=== PATIENT | male | born 1965 | race Caucasian/White ===

== ENCOUNTER 2022-06-23 12:59 | Emergency (ER) | payer OTHER, SELFPAY ==
[2022-06-23] VITALS (7 sets, daily range): BP systolic 143–168; BP diastolic 68–104; PULSE 71–203; RESP 16–20; TEMP 36.6; O2SAT 96–99; BMI 37.3
--- NOTE | 2022-06-23 13:07 | HMH.EDGENADL ---
Discharge Plan Disposition Patient Disposition: Home, Self-Care Condition: Good Prescriptions Prescriptions: New metoprolol tartrate 50 mg tablet 50 mg PO BID Qty: 60 0RF Referrals Follow up/Referrals: Provider,Referral, [Primary Care Provider] - See instructions Activity Restrictions/Add. Instructions Additional Instructions/Restrictions: Metoprolol twice a day. Stopped this medication 5 days prior to your ablation procedure. Return to the emergency department if rapid heartbeat returns and does not resolve with vagal maneuvers. Follow-up with Dr. Alfred, call tomorrow to report to emergency department visit and arrange further care. Follow-up with your primary care provider for elevated blood sugar, 165 at the time of this visit. Clinical Impressions Clinical Impression: Supraventricular tachycardia Instructions Patient Instructions: DI for Paroxysmal Supraventricular Tachycardia Discharge ED Provider: Bart Arteaga General Adult HPI General Chief complaint: Arrhythmia/Palpitations Stated complaint: chest pain Time Seen by Provider: 06/23/22 13:01 History of Present Illness HPI narrative: 20-minute episode of tachycardia associated with shortness of breath and chest discomfort and diaphoresis. He has had episodes of tachycardia off and on for 10 years, he estimates 10-15 episodes. Most recently a couple weeks ago he was seen at the [facility] for an episode that lasted 2 hours. He says that he had to receive medication to stop his rapid heartbeat. He was referred to a inventory technician, Dr. Alfred, at [facility]. He has seen him and says he is scheduled to have an ablation done next month. He has not been started on any medications for his arrhythmia. He does not have any known coronary disease or MT. He has never had a cardiac cath. He has had a stress test in the past many years ago. Related Data Previous Rx's Medication Instructions Recorded metoprolol tartrate 50 mg tablet 50 mg PO BID #60 tabs 06/23/22 Allergies Allergy/AdvReac Type Severity Reaction Status Date / Time No Known Allergies Allergy Unverified 03/11/21 13:42 [facility] Disclaimer: The information contained in this section may have been updated after the patient was seen, as this information can be updated by other users. Social History Smoking Status: Never smoker alcohol intake: never current occupational status: employed Travel in the last 8 weeks: None ROS Obtained: Yes Systems reviewed as appropriate & no additional complaints except as documented Constitutional Constitutional: Denies fever(s), Denies headache(s) and Denies weakness ENT Ears, Nose, Mouth, and Throat: Denies headache(s), Denies nasal discharge and Denies sore throat Cardiovascular Cardiovascular: Reports chest pain, Reports diaphoresis and Reports rapid heart rate Respiratory Respiratory: Reports shortness of breath and Denies cough Gastrointestinal Gastrointestingal: Denies abdominal pain, constipation, diarrhea or vomiting Genitourinary Male Genitourinary: Denies difficulty urinating and Denies flank pain Musculoskeletal Musculoskeletal: Denies numbness Neurologic Neurologic: Denies headache(s), Denies numbness and Denies weakness Physical Exam General General appearance: alert and in no apparent distress Head Head exam: atraumatic and normocephalic Eye Eye exam: Present normal appearance and EOMI ENT ENT exam: Present mucous membranes moist Neck Neck exam: Present normal inspection and trachea midline Chest Chest inspection: Present normal inspection and symmetric chest wall rise Respiratory Respiratory exam: Present normal lung sounds bilaterally; Absent respiratory distress Cardiovascular Cardiovascular exam: Present tachycardia and normal heart sounds Abdominal Exam Abdominal exam: Present soft and normal bowel sounds; Absent distention, tenderness, guarding, rebound or rigidity Extremities Exam Extrem
--- NOTE | 2022-06-23 13:11 | ECG_ITS ---
APPROVED REPORT Exam: Resting ECG HR:76 bpm ECG Measurements Heart Rate 76 AXES NH 178 P 27 QRSd 98 QRS -28 QT 372 T 17 QTc 403 Conclusion SINUS RHYTHM LOW QRS VOLTAGE IN PRECORDIAL LEADS LVH Late R wave progression UNCONFIRMED REPORT Electronically signed by : Wade Sawyer MD 06/23/2022 15:30:25
--- NOTE | 2022-06-23 13:44 | PC.NURSE ---
checked on pt at this time, states no needs at this time. at BS will continue to monitor
--- NOTE | 2022-06-23 13:47 | PC.NURSE ---
DR VAUGHAN AT BEDSIDE
--- NOTE | 2022-06-23 13:55 | PC.NURSE ---
placed call for Dr Alfred, at [facility] medical exchange is to give Dr Staley calling back.
[2022-06-23 13:57] LABS: Blood Urea Nitrogen 13 mg/dl (9-20); Calcium 8.7 mg/dl (8.4-10.2); Carbon Dioxide 27 mmol/L (22.0-30.0); Chloride 106 mmol/L (98-107); Creatinine Clearance Estimated 139 mL/min (50-200); Estimated Glomerular Filt Rate 78 ml/min (>60); GFR (African American) 94 ML/MIN (>60); Glucose 165 mg/dl (74-100); Magnesium 1.8 mg/dl (1.6-2.3); Sodium 137 mmol/L (136-145)
--- NOTE | 2022-06-23 13:57 | PC.NURSE ---
Dr Arteaga speaking with Dr Staley
[2022-06-23 14:08] LABS: Basophils # 0.2 K/mm3 (0-0.2); Eosinophils # 0.5 K/mm3 (0.0-0.4); Eosinophils % 4.5 % (0.1-12.0); Hematocrit 50.7 % (42.0-52.0); Hemoglobin 17.1 g/dL (14.1-18.0); Lymphocytes # 2.7 K/mm3 (0.7-4.5); Lymphocytes % 26.4 % (10-50); Mean Corpuscular HGB Conc 33.7 g/dL (31.8-35.4); Mean Corpuscular Hemoglobin 29.4 pg (27.0-31.2); Mean Corpuscular Volume 87.2 fl (80-94); Mean Platelet Volume 8.6 fl (7.4-10.4); Monocytes # 0.9 K/mm3 (0.1-1.0); Monocytes % 9.2 % (1.7-9.3); Neutrophils # 5.9 K/mm3 (1.8-7.8); Platelet Count 312 K/mm3 (142-424); Red Blood Count 5.82 M/mm3 (4.60-6.20); White Blood Count 10.1 K/mm3 (4.8-10.8)
[2022-06-23 14:09] LABS: Troponin I < 0.01 ng/ml (0.00-0.034)
--- NOTE | 2022-06-23 14:30 | PC.NURSE ---
ER at discussing test results and POC
== END 2022-06-23 15:05 | disposition home or self-care (01) ==
PROVIDERS: Emergency Provider Emergency Medicine
DX: I47.1 Supraventricular tachycardia (principal)
CPT/HCPCS: 80048; 83735; 84484; 85025; 93005; 96361; 96374; 99285

== ENCOUNTER 2023-09-21 00:37 | Emergency (ER) | payer OTHER, SELFPAY ==
[2023-09-21] VITALS (9 sets, daily range): BP systolic 125–161; BP diastolic 69–95; PULSE 59–69; RESP 13–18; TEMP 36.5; O2SAT 94–98; BMI 37.3
--- NOTE | 2023-09-21 00:36 | ECG_ITS ---
APPROVED REPORT Exam: Resting ECG HR:64 bpm ECG Measurements Heart Rate 64 AXES MS 182 P 40 QRSd 97 QRS -9 QT 392 T 11 QTc 402 Conclusion SINUS RHYTHM WITH OCCASIONAL VENTRICULAR PREMATURE COMPLEXES LOW QRS VOLTAGE IN PRECORDIAL LEADS [QRS DEFLECTION < 1.0 mV IN CHEST LEADS] POSSIBLE ANTERIOR MYOCARDIAL INFARCTION , PROBABLY OLD [30 ms Q WAVE IN V3/V4, OR R < 0.2 mV IN V4] BORDERLINE ECG Electronically signed by : DENZEL LOTT, 09/21/2023 06:44:31
--- NOTE | 2023-09-21 01:02 | XR_ITS ---
PROCEDURE INFORMATION: Exam: XR Chest Exam date and time: 09/21/2023 1:03 AM Age: 58 years old Clinical indication: Pain; Chest pressure; Additional info: SOA cp TECHNIQUE: Imaging protocol: Radiologic exam of the chest. Views: 1 view. COMPARISON: No relevant prior studies available. FINDINGS: Lungs: Unremarkable. No consolidation. Pleural spaces: Unremarkable. No pleural effusion. No pneumothorax. Heart/Mediastinum: Unremarkable. No cardiomegaly. Bones/joints: Unremarkable. IMPRESSION: No acute findings.
--- NOTE | 2023-09-21 01:05 | HMH.EDCP ---
Discharge Plan Disposition Patient Disposition: Home, Self-Care Condition: Good Prescriptions Prescriptions: No Action No Known Home Medications Referrals Follow up/Referrals: Provider,MD Evon [Primary Care Provider] - See instructions Jose Tafoya MD [Staff Physician] - See instructions (palpitations, hx SVT w/ ablation) Activity Restrictions/Add. Instructions Additional Instructions/Restrictions: You were evaluated in the ER. You are appropriate for discharge at this time. You have mild kidney dysfunction today. Increase your water intake. Make an appointment with your primary care physician for reevaluation in 2 to 3 days to discuss this and to have your labs rechecked. Also call cardiology and make an appointment with them. You have been referred to Dr. Tafoya for this purpose. Return to the ER with any new, worsening, or otherwise concerning symptoms. Clinical Impressions Clinical Impression: Palpitations, Creatinine elevation Discharge ED Provider: Fahad Pereira General Chief Complaint: Chest Pain Stated Complaint: Chest pain Time Seen by Provider: 09/21/23 00:46 Mode of Arrival: Ambulatory Source of Information: Patient Limitations: No Limitations Description of Symptoms (Recalled from ER Triage Doc. by RN): pt states he drank half of an energy drink on friday after that pt c/o of heart racing and chest tightness while sitting. pt had a heart ablation in 2022 History of Present Illness HPI narrative: 58-year-old male with a history of ablation for SVT approximately 1 year ago presents to the ER with concerns of heart racing, chest tightness, shortness of breath. 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 He reports drinking approximately half of it, and started feeling like his heart was racing and he had chest tightness. He states he has had the same sensation of chest tightness without the sensation of palpitations in the last few days. He notices it more at rest. He states he is actively having that sensation in the ER. He states it feels like his breath is being taken away. He does not smoke, he denies any swelling or pain in the feet or legs, no history of blood clots, denies illicit substances or alcohol. No other associated symptoms. Related Data Home Medications Medication Instructions Recorded Confirmed No Known Home Medications 05/12/24 05/12/24 Allergies Allergy/AdvReac Type Severity Reaction Status Date / Time trees Allergy Mild Congested Uncoded 09/05/23 15:03 [facility] Disclaimer: The information contained in this section may have been updated after the patient was seen, as this information can be updated by other users. Medical History Colon cancer Surgical History H/O colectomy Family History Mother Diabetes Father Diabetes Hypertension Social History Smoking Status: Former smoker years smoked: 25 alcohol intake: never substance use type: denies use current occupational status: employed Travel in the last 8 weeks: Inside the [place] ROS Obtained: Yes All systems reviewed & no additional complaints except as documented Constitutional Constitutional: Denies chills, Denies fever(s), Denies headache(s) and Denies weakness Eyes Eyes: Denies change in vision ENT Ears, Nose, Mouth, and Throat: Denies dizziness, Denies headache(s), Denies nasal congestion and Denies sore throat Cardiovascular Cardiovascular: Reports chest pain, Reports dyspnea, Denies leg edema and Reports palpitations Respiratory Respiratory: Denies cough and Reports dyspnea Gastrointestinal Gastrointestingal: Denies constipation, diarrhea, nausea or vomiting Genitourinary Male Genitourinary: Denies difficulty urinating Musculoskeletal Musculoskeletal: Denies arthralgias, Denies myalgias, Denies numbness and Denies tingling Integumentary/Breasts Skin/Breast: Denies change in pigmentation Neurologic Neurologic: Denies dizziness, Denies headache(s), Denies numbness, Denies tingling and Denies weakness Endocrine Endocrine: Reports palpitations Physical Exam General General appearance: alert and in no apparent distress Head Head exam: atraumatic and normocephalic Eye Eye exam: Present PERRL and EOMI ENT ENT exam: Present mucous membranes moist Neck Neck exam: Present normal inspection and full ROM Chest Chest inspection: Present symmetric chest wall rise; Absent tenderness Respiratory Respiratory exam: Present normal lung sounds bilaterally; Absent respiratory distress, wheezes or stridor Cardiovascular Cardiovascular exam: Present regular rate and normal rhythm Abdominal Exam Abdominal exam: Present soft; Absent distention, tenderness, guarding or rebound Extremities Exam Extremities exam: Present full ROM; Absent edema Neurological Exam Neurological exam: Present alert and oriented X3; Absent motor sensory deficit Psychiatric Psychiatric exam: Present normal affect and normal mood Skin Skin exam: Present warm and dry HEART Score HEART Score HEART Score assessment performed?: Yes History (anamnesis): Moderately suspicious ECG: Non-specific disturbance Age: 45-65 years Risk factors: 1-2 risk factors Troponin: </= normal limit HEART Score: 4 Critical Care Critical Care Time Critical Care Time: No Medical Decision Making Clemente Inquiry Pt receiving controlled substance: No Vital Signs Vital Signs: 09/21/23 00:38 09/21/23 00:45 09/21/23 00:54 Temperature 97.7 F Temperature Source Oral Pulse Rate 66 69 Pulse Rate [Right] 69 Respiratory Rate 16 13 Blood Pressure 140/83 Blood Pressure [Right Arm] 147/86 H Blood Pressure Mean Blood Pressure Mean [Right Arm] 106 02 Sat by Pulse Oximetry 97 95 Oxygen Delivery Method Room Air 09/21/23 01:00 Temperature Temperature Source Pulse Rate 65 Pulse Rate [Right] Respiratory Rate 16 Blood Pressure 148/95 H Blood Pressure [Right Arm] Blood Pressure Mean 104 Blood Pressure Mean [Right Arm] 02 Sat by Pulse Oximetry 94 L Oxygen Delivery Method Room Air Lab Data Labs: Lab Results 09/21/23 00:49: WBC 12.7 H, RBC 5.52, Hgb 16.7, Hct 50.9, MCV 92.2, MCH 30.2, MCHC 32.8, RDW 13.9, Plt Count 224, MPV 8.3, Neut % (Auto) 65.2, Lymph % (Auto) 21.1, [place] % (Auto) 8.0, Eos % (Auto) 4.1, Baso % (Auto) 1.6, Neut # (Auto) 8.3 H, Lymph # (Auto) 2.7, [place] # (Auto) 1.0, Eos # (Auto) 0.5 H, Baso # (Auto) 0.2, D-Dimer 0.44, Sodium 137, Potassium 3.8, Chloride 105, Carbon Dioxide 26, Anion Gap 9.8, BUN 22 H, Creatinine 1.50 H, Estimated Creat Clear 92, Estimated GFR 48 L, Est GFR ( Amer) 59, Glucose 107 H, Calcium 9.2, Total Bilirubin 0.7, AST 48, ALT 54, Alkaline Phosphatase 93, Troponin I < 0.01, Total Protein 6.8, Albumin 3.9, Globulin 2.9, Albumin/Globulin Ratio 1.3 09/21/23 02:50: Sodium 138, Potassium 3.6, Chloride 104, Carbon Dioxide 28, Anion Gap 9.6, BUN 21 H, Creatinine 1.30 H, Estimated Creat Clear 106, Estimated GFR 57 L, Est GFR ( Amer) 69, Glucose 98, Calcium 8.6 09/21/23 00:49 09/21/23 02:50 Response Orders (Tests/Meds): ED MEDICATIONS Discontinued Medications Generic Name Dose Route Start Last Admin Trade Name Freq PRN Reason Stop Dose Admin Lactated Ringer's 1,000 mls @ 999 mls/hr 09/21/23 01:04 09/21/23 01:15 Lactated Ringer's 1000 Ml Bag IV 09/21/23 02:04 999 mls/hr .Q1H1M ONE Administration Lactated Ringer's 1,000 mls @ 999 mls/hr 09/21/23 01:22 09/21/23 01:29 Lactated Ringer's 1000 Ml Bag IV 09/21/23 02:22 999 mls/hr .Q1H1M ONE Administration Ketorolac Tromethamine 15 mg 09/21/23 01:04 09/21/23 01:16 Ketorolac 30mg/Ml Vial IV 09/21/23 01:05 15 mg ONCE ONE Administration ORDERS Category Date Time Status CXR --portable [XR chest portable] Stat Exams 09/21/23 01:02 Completed BMP [Basic Metabolic Panel] Stat Lab 09/21/23 02:50 Completed CBC w/Auto Diff [Complete Blood Count Auto Diff] Stat Lab 09/21/23 00:49 Completed CMP [Comprehensive Metabolic Panel] Stat Lab 09/21/23 00:49 Completed D-Dimer Stat Lab 09/21/23 00:49 Completed Trop I [Troponin I] Stat Lab 09/21/23 00:49 Completed Troponin I Q3H Lab 09/21/23 04:15 Ordered Troponin I Q3H Lab 09/21/23 07:15 Ordered MDM Narrative Medical Decision Narrative: In summary, this 58year old male presents to the emergency department today with concerns of palpitations, chest tightness, sensation of his breath being taken away intermittently while at rest. Comorbidities of current condition include history of SVT with ablation which increases his overall morbidity and risk of arrhythmias. 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 On initial evaluation patient is hemodynamically stable, afebrile, cardiopulmonary exam is reassuring, no peripheral edema, no reproducible chest pain on exam but patient states he is experiencing the same discomfort while in the ER that he has intermittently had at home over the last few days. Differential diagnosis includes but is not limited to ACS, PE, arrhythmia, caffeine sensitivity, electrolyte abnormality, dehydration. Based on these concerns, I ordered cardiac workup, chest x-ray, D-dimer, basic labs. ECG personally interpreted demonstrates normal sinus rhythm, rate 64, occasional PVCs, normal axis, normal KS, QTc 402, no STEMI. Patient received IV fluids, Toradol for treatment. Labs personally reviewed demonstrate mild leukocytosis, no anemia, sodium, potassium, chloride normal, BUN and creatinine are slightly elevated today compared to previous with creatinine of 1.5. Patient is going to receive 2 L of IV fluids and then I will repeat BMP for recheck. Initial troponin undetectably low at less than 0.01. Given duration of symptoms, this is significantly reassuring against acute cardiac event. D-dimer negative, no concern for PE, reassuring against dissection as well especially in the setting of normal mediastinum on chest x-ray, normal pulses, and no tearing pain or radiation to the back. XR personally interpreted demonstrates no acute intrathoracic abnormality. See radiology read for final interpretation. Repeat BMP demonstrates improvement in creatinine. Patient is appropriate for discharge at this time. I counseled him on following up with his primary for recheck of labs as well as to follow-up with cardiology to discuss his palpitations and abnormal sensation in the chest. Patient was given instructions on symptomatic management, increase fluid intake, follow up instructions, and return precautions for the emergency department. Patient indicated understanding and was discharged in stable condition.
[2023-09-21 01:10] LABS: Basophils # 0.2 K/mm3 (0-0.2); Basophils % 1.6 % (0.1-2.0); Eosinophils # 0.5 K/mm3 (0.0-0.4); Eosinophils % 4.1 % (0.1-12.0); Hematocrit 50.9 % (42.0-52.0); Hemoglobin 16.7 g/dL (14.1-18.0); Lymphocytes # 2.7 K/mm3 (0.7-4.5); Lymphocytes % 21.1 % (10-50); Mean Corpuscular HGB Conc 32.8 g/dL (31.8-35.4); Mean Corpuscular Hemoglobin 30.2 pg (27.0-31.2); Mean Corpuscular Volume 92.2 fl (80-94); Mean Platelet Volume 8.3 fl (7.4-10.4); Neutrophils # 8.3 K/mm3 (1.8-7.8); Neutrophils % 65.2 % (37.0-80.0); Platelet Count 224 K/mm3 (142-424); Red Blood Count 5.52 M/mm3 (4.60-6.20); Red Cell Distribution Width 13.9 % (11.5-17.5); White Blood Count 12.7 K/mm3 (4.8-10.8)
[2023-09-21 01:12] LABS: Chloride 105 mmol/L (98-107); Potassium 3.8 mmoL/L (3.5-5.1); Sodium 137 mmol/L (136-145)
[2023-09-21 01:14] LABS: Blood Urea Nitrogen 22 mg/dl (9-20); Creatinine Clearance Estimated 92 mL/min (50-200); Estimated Glomerular Filt Rate 48 ml/min (>60); GFR (African American) 59 ML/MIN (>60)
[2023-09-21 01:15] LABS: Alanine Aminotransferase 54 U/L (12-78); Albumin Level 3.9 g/dl (3.5-5.0); Albumin/Globulin Ratio 1.3 (1.1-1.8); Alkaline Phosphatase 93 U/L (38-126); Anion Gap 9.8 mEq/L (5-15); Aspartate Amino Transferase 48 U/L (17-59); Bilirubin,Total 0.7 mg/dl (0.2-1.3); Carbon Dioxide 26 mmol/L (22.0-30.0); Globulin 2.9 g/dL (1.3-3.2); Total Protein,Serum 6.8 g/dl (6.3-8.2)
[2023-09-21] MEDS: LACTATED RINGERS 1000ML 1,000 ML 999 ML IV ×2 (01:15→01:29)
[2023-09-21 01:16] LABS: Calcium 9.2 mg/dl (8.4-10.2); Glucose 107 mg/dl (74-100)
[2023-09-21] MEDS: KETOROLAC 30MG/ML VIAL 15 MG IV (01:16)
[2023-09-21 01:20] LABS: D-Dimer 0.44 ug/mL (0.0-0.5)
[2023-09-21 01:28] LABS: Troponin I < 0.01 ng/ml (0.00-0.034)
[2023-09-21 03:03] LABS: Anion Gap 9.6 mEq/L (5-15); Blood Urea Nitrogen 21 mg/dl (9-20); Calcium 8.6 mg/dl (8.4-10.2); Carbon Dioxide 28 mmol/L (22.0-30.0); Chloride 104 mmol/L (98-107); Creatinine Clearance Estimated 106 mL/min (50-200); Estimated Glomerular Filt Rate 57 ml/min (>60); GFR (African American) 69 ML/MIN (>60); Glucose 98 mg/dl (74-100); Potassium 3.6 mmoL/L (3.5-5.1); Sodium 138 mmol/L (136-145)
== END 2023-09-21 03:18 | disposition home or self-care (01) ==
PROVIDERS: Emergency Provider Emergency Medicine; PCP Nurse Practitioner Family
DX: R07.89 Other chest pain (principal); R00.2 Palpitations; I49.3 Ventricular premature depolarization; R79.89 Other specified abnormal findings of blood chemistry; R06.02 Shortness of breath; Z87.891 Personal history of nicotine dependence
CPT/HCPCS: 71045; 80048; 80053; 84484; 85025; 85378; 93005; 96361; 96374; 99284

== ENCOUNTER 2024-06-04 15:18 | Outpatient (CLI) | payer OTHER, SELFPAY ==
--- NOTE | 2024-06-04 15:20 | XR_ITS ---
FINAL REPORT TECHNIQUE: Chest PA & Lateral CLINICAL HISTORY: shortness of breath, fever, cough x 4 days COMPARISON: 09/21/2023 FINDINGS: 2 views of the chest were performed. The heart size is normal. The mediastinum is within normal limits. Atelectasis is noted at the right lung base. There are no pleural effusions. There is no pneumothorax. The bony thorax appears intact. IMPRESSION: Right lung base atelectasis. Reviewed, Interpreted and Dictated by Theo Aparicio MD Transcribed by Reny Rodriguez Authenticated and [facility]
== END 2024-06-04 23:59 | disposition home or self-care (01) ==
PROVIDERS: PCP Nurse Practitioner Family; Visit Provider Nurse Practitioner Family
DX: R06.02 Shortness of breath (principal); R50.9 Fever, unspecified; R05.1 Acute cough
CPT/HCPCS: 71046; 87635

== ENCOUNTER 2024-07-28 18:40 | Observation (INO) | payer OTHER, SELFPAY ==
[2024-07-28 18:51] VITALS: BP 157/73; PULSE 96; RESP 18; TEMP 36.5; O2SAT 96; BMI 37.3
[2024-07-28 18:57] LABS: Coronavirus 19, PCR Not Detected (NotDetected); Influenza A, PCR Not Detected (NotDetected); Influenza B, PCR Not Detected (NotDetected)
--- NOTE | 2024-07-28 19:00 | XR_ITS ---
PROCEDURE INFORMATION: Exam: XR Complete Acute Abdomen Series Including Chest Exam date and time: 07/28/2024 7:26 PM Age: 59 years old Clinical indication: Abdominal pain; Additional info: Lower abd pain starting yesterday, nausea, denies vomiting TECHNIQUE: Imaging protocol: Radiologic exam. Complete acute abdomen series, including 2 or more views of the abdomen and a single view chest. COMPARISON: CR XR CHEST 2V 06/04/2024 3:21 PM FINDINGS: Tubes, catheters and devices: Surgical clips overlie the gallbladder fossa. Lungs: Normal. No consolidation. Pleural spaces: Normal. No pleural effusions. No pneumothorax. Heart/Mediastinum: Normal. No cardiomegaly. Gastrointestinal tract: Mild bowel thickening without dilated loops or air-fluid levels. Intraperitoneal space: Normal. No free air. Bones/joints: Normal. No acute fracture. Soft tissues: Normal. IMPRESSION: Mild bowel thickening without dilated loops or air-fluid levels.
[2024-07-28 19:25] LABS: Microscopic, Urine URINE MICROSCOPIC (MICROSCOPIC)
[2024-07-28 19:26] LABS: Appearance,Urine CLEAR (Clear); Bilirubin,Urine Negative (Negative); Blood, Urine Negative (Negative); Color,Urine YELLOW (Yellow); Glucose,Urine (UA) Negative (Negative); Ketones,Urine Negative (Negative); Leukocyte Esterase,Urine Negative (Negative); Nitrate,Urine Negative (Negative); PH,Urine 6.5 (5.0-8.5); Protein,Urine Negative (Negative); Specific Gravity, Urine 1.015 (1.005-1.030); Urobilinogen,Urine 0.2 EU/dl (0.2)
--- NOTE | 2024-07-28 19:34 | PC.NURSE ---
Pt awake alert and oriented Skin pink warm and dry Resp full and easy Speech clear and appropriate Pt to Xray via wheelchair
[2024-07-28 19:49] LABS: Basophils # 0.1 K/mm3 (0-0.2); Basophils % 0.5 % (0.1-2.0); Eosinophils # 0.1 K/mm3 (0.0-0.4); Eosinophils % 0.2 % (0.1-12.0); Hemoglobin 17.3 g/dL (14.1-18.0); Lymphocytes # 2.2 K/mm3 (0.7-4.5); Lymphocytes % 10.7 % (10-50); Mean Corpuscular HGB Conc 34.6 g/dL (31.8-35.4); Mean Corpuscular Hemoglobin 29.8 pg (27.0-31.2); Mean Corpuscular Volume 86.2 fl (80-94); Mean Platelet Volume 10.2 fl (7.4-10.4); Monocytes % 9.7 % (1.7-9.3); Neutrophils % 77.7 % (37.0-80.0); Platelet Count 212 K/mm3 (142-424); Red Cell Distribution Width 13.6 % (11.5-17.5); White Blood Count 20.6 K/mm3 (4.8-10.8)
[2024-07-28 19:51] LABS: MANUAL DIFFERENTIAL MANUAL DIFFERENTIAL (MANUAL DIFF)
[2024-07-28] MEDS: 0.9 % SODIUM CHLORIDE 1000ML 1,000 ML 999 ML IV (19:52)
[2024-07-28 20:02] LABS: Lactic Acid 0.9 mmol/L (0.7-2.1); Lipase 159 U/L (23-300)
[2024-07-28 20:03] LABS: Alanine Aminotransferase 44 U/L (12-78); Albumin Level 4.3 g/dl (3.5-5.0); Albumin/Globulin Ratio 1.5 (1.1-1.8); Alkaline Phosphatase 77 U/L (38-126); Anion Gap 10.9 mEq/L (5-15); Aspartate Amino Transferase 37 U/L (17-59); Bilirubin,Total 0.8 mg/dl (0.2-1.3); Blood Urea Nitrogen 17 mg/dl (9-20); Carbon Dioxide 24 mmol/L (22.0-30.0); Chloride 101 mmol/L (98-107); Creatinine Clearance Estimated 136 mL/min (50-200); Estimated Glomerular Filt Rate 77 ml/min (>60); GFR (African American) 93 ML/MIN (>60); Globulin 2.8 g/dL (1.3-3.2); Glucose 139 mg/dl (74-100); Potassium 3.9 mmoL/L (3.5-5.1); Sodium 132 mmol/L (136-145); Total Protein,Serum 7.1 g/dl (6.3-8.2)
[2024-07-28 20:10] LABS: Eosinophils % 1 % (0-3); Lymphocytes % 7 % (10-50); Monocytes % 12 % (2-9); Neutrophils % 80 % (42-76); Total Cells Counted 100
[2024-07-28 20:11] LABS: Platelet Estimate Normal; RBC Morphology Normal
[2024-07-28] MEDS: HYDROMORPHONE 2MG/ML SYRINGE 0.5 MG IV (20:46)
[2024-07-28] MEDS: PIPERACILLIN/TAZO 4.5 GM in 0.9 % SODIUM CHLORIDE 100 ML IV (20:46)
[2024-07-28] MEDS: KETOROLAC 30MG/ML VIAL 15 MG IV ×2 (20:46→23:45)
--- NOTE | 2024-07-28 20:46 | CT_ITS ---
PROCEDURE INFORMATION: Exam: CT Abdomen And Pelvis With Contrast Exam date and time: 07/28/2024 9:10 PM Age: 59 years old Clinical indication: Abdominal pain; Other: Midline suprapubic pain; Additional info: Severe midline suprapubic pain TECHNIQUE: Imaging protocol: Computed tomography of the abdomen and pelvis with contrast. Radiation optimization: All CT scans at this facility use at least one of these dose optimization techniques: automated exposure control; mA and/or kV adjustment per patient size (includes targeted exams where dose is matched to clinical indication); or iterative reconstruction. Contrast material: ISOVUE; Contrast volume: 75 ml; Contrast route: IV; COMPARISON: CR Acute Abdomen 07/28/2024 7:26 PM FINDINGS: Lungs: Dependent bilateral lung base opacities favor atelectasis. Liver: There is diffuse hypoattenuation of the liver compatible with moderate hepatic steatosis. Gallbladder and biliary ducts: There are surgical clips within the gallbladder fossa. Pancreas: Normal. No ductal dilation. Spleen: Normal. No splenomegaly. Adrenal glands: Normal. No mass. Kidneys and ureters: Normal. No hydronephrosis. Stomach and bowel: Sigmoid colon demonstrates mild acute diverticulitis. Appendix: The appendix is not visualized with surgical changes at the cecum suggesting appendectomy. Intraperitoneal space: Unremarkable. No free air. No significant fluid collection. Vasculature: Unremarkable. No abdominal aortic aneurysm. Lymph nodes: Unremarkable. No enlarged lymph nodes. Urinary bladder: Unremarkable as visualized. Reproductive: Unremarkable as visualized. Bones/joints: Moderate loss of intervertebral disc space with degenerative changes involving L5-S1 Soft tissues: Normal. IMPRESSION: Sigmoid colon demonstrates mild acute diverticulitis. No perforation. No abscess.
[2024-07-28 20:53] LABS: Bacteria,Urine 1+ /lpf; Mucus,Urine 1+ /lpf; RBC,Urine Occasional #/hpf (0-3); Squamous Epithelial Cell,Urine Occasional #/hpf (0-5); WBC,Urine Occasional #/hpf (0-3)
--- NOTE | 2024-07-28 20:54 | ED_ITS ---
Discharge Plan Disposition Patient Disposition: Admitted Chief Complaint: Abdominal Pain Prescriptions Prescriptions: No Action Airsupra 90-80 mcg/actuation HFA aerosol inhaler 2 inh inhalation 6XD PRN (Reason: shortness of breath or wheezing) Qty: 10.7 0RF amoxicillin-pot clavulanate 875-125 mg tablet 1 tab PO BID 14 Days Qty: 28 0RF albuterol sulfate 90 mcg/actuation HFA aerosol inhaler 2 puff inhalation Q4-6H PRN (Reason: shortness of breath or wheezing) Qty: 8.5 0RF Referrals Follow up/Referrals: Erinn Del Cid APRN [Primary Care Provider] - See instructions Clinical Impressions Clinical Impression: Diverticulitis of sigmoid colon Instructions Patient Instructions: DI for Acute Abdominal Pain Print Language Print Language: Occitan Discharge ED Provider: Angelo Lugo General Adult HPI General Chief complaint: Abdominal Pain Stated complaint: lower abd pain, pain when urinating, fever Time Seen by Provider: 07/28/24 19:34 Mode of Arrival: Ambulatory Description of Symptoms (Recalled from ER Triage Doc. by RN): Pt presents with c/o lower abd pain, fever and pain with urinating. Pt states he was on amoxcillin for a partially collapsed long. History of Present Illness HPI narrative: Please note that above description of symptoms, in this electronic medical record under categorization of recalled from ER triage doctor by RN are reflective of an initial nursing assessment, however, is not reflective of my full history and physical exam that was personally taken and clarified. Consequentially, this preceding description of symptoms, which may include the patient's categorized chief complaint in the EMR, do not reflect my personal clinical impression, and the ultimate description of history of present illness and patient stated complaints should be deferred to this section of the note. Unless stated otherwise or congruent with this section of the note, additional signs, symptoms, or incongruence should be interpreted as inaccurate with my clinical impression. Related Data Previous Rx's ?Medication ?Instructions ?Recorded albuterol sulfate 90 mcg/actuation 2 puff inhalation Q4-6H PRN 06/05/24 aerosol inhaler shortness of breath or wheezing #8.5 grams albuterol 90 mcg-budesonide 80 2 inh inhalation 6XD PRN shortness 06/11/24 mcg/actuation HFA aerosol inhaler of breath or wheezing #10.7 grams (Airsupra) amoxicillin 875 mg-potassium 1 tab PO BID 14 days #28 tabs 07/12/24 clavulanate 125 mg tablet Allergies Allergy/AdvReac Type Severity Reaction Status Date / Time tree and shrub pollen Allergy Mild Congested Verified 07/12/24 09:28 [facility] Disclaimer: The information contained in this section may have been updated after the patient was seen, as this information can be updated by other users. Medical History (Updated 07/28/24 @ 22:25 by Angelo Lugo MD) Acute maxillary sinusitis Urinary incontinence Acute bronchitis Right otitis media Palpitations Creatinine elevation Colon cancer Surgical History H/O colectomy Family History Mother Diabetes Father Diabetes Hypertension Social History Smoking Status: Never smoker years smoked: 25 alcohol intake: never substance use type: denies use current occupational status: employed Travel in the last 8 weeks: Inside the [place] Have you lived/traveled outside US in past 30 days?: No Contact w/someone who lives/traveled outside US past 30 days?: No Exposure to someone with infectious disease in past 14 days?: No Do you have a fever (greater than 100.4 F or 38 C)?: No Have you tested positive for COVID-19: No Exposed to someone with COVID-19 in past 14 days?: No Do you have a sore throat?: No Do you have a cough?: No Do you have any weakness?: No Do you have any diarrhea?: No Are you experiencing any unusual bleeding?: No Do you have any muscle aches/pain?: No Do you have any abdominal pain?: No Are you experiencing loss of taste or smell?: No Other Medical History Have you received the Pneumonia Vaccine: No ROS Obtained: Yes All systems reviewed & no additional complaints except as documented Physical Exam General General appearance: alert, in distress (Mild distress secondary to pain, splinting in chair) and obese Head Head exam: atraumatic and normocephalic Eye Eye exam: Present normal appearance, PERRL and EOMI Neck Neck exam: Present normal inspection, full ROM and trachea midline Respiratory Respiratory exam: Absent respiratory distress, wheezes, stridor, accessory muscle use or prolonged expiratory phase Cardiovascular Cardiovascular exam: Present other (Pulses equal symmetric in upper and lower extremities) Abdominal Exam Abdominal exam: Present soft, tenderness and guarding; Absent distention, rebound, rigidity or pulsatile mass Abdominal tenderness: Present LLQ, suprapubic and severe Extremities Exam Extremities exam: Absent edema Neurological Exam Neurological exam: Present alert, oriented X3 and CN II-XII intact; Absent motor sensory deficit Skin Skin exam: Present warm and dry; Absent diaphoresis or erythema Medical Decision Making Medical Records Medical records reviewed: Yes I reviewed the patient's medical records. Screening: Per USPSTF and CDC recommendations, given the prevalence of disease in our region, it is our hospital?s policy to screen for HIV and viral Hepatitis for all patients aged 18 and over and those with ongoing risk factors. [place] Inquiry Pt receiving controlled substance: No [place] was queried for this patient: No Vital Signs: 07/28/24 18:51 Temperature 97.7 F Temperature Source Temporal Artery Scan Pulse Rate [Right] 96 H Respiratory Rate 18 Blood Pressure [Right Arm] 157/73 H Blood Pressure Mean [Right Arm] 101 Blood Pressure Source [Right Arm] Automatic Cuff Blood Pressure Position [Right Arm] Sitting 02 Sat by Pulse Oximetry 96 Lab Data Lab Results 07/28/24 18:53: SARS-CoV-2 (PCR) Not detected, Influenza A Untype (PCR) Not detected, Influenza Type B (PCR) Not detected 07/28/24 19:21: Urine Color Yellow, Urine Appearance Clear, Urine pH 6.5, Ur Specific [place] 1.015, Urine Protein Negative, Urine Glucose (UA) Negative, Urine Ketones Negative, Urine Blood Negative, Urine Nitrate Negative, Urine Bilirubin Negative, Urine Urobilinogen 0.2, Ur Leukocyte Esterase Negative, Urine RBC Occasional, Urine WBC Occasional, Ur Squamous Epith Cells Occasional, Urine Bacteria 1+, Urine Mucus 1+ 07/28/24 19:35: WBC 20.6 H*, RBC 5.80, Hgb 17.3, Hct 50.0, MCV 86.2, MCH 29.8, MCHC 34.6, RDW 13.6, Plt Count 212, MPV 10.2, Neut % (Auto) 77.7, Lymph % (Auto) 10.7, [place] % (Auto) 9.7 H, Eos % (Auto) 0.2, Baso % (Auto) 0.5, Neut # (Auto) 16.0 H, Lymph # (Auto) 2.2, [place] # (Auto) 2.0 H, Eos # (Auto) 0.1, Baso # (Auto) 0.1, Total Counted 100, Neutrophils % (Manual) 80 H, Lymphocytes % (Manual) 7 L, Monocytes % (Manual) 12 H, Eosinophils % (Manual) 1, Platelet Estimate Normal, RBC Morphology Normal, Sodium 132 L, Potassium 3.9, Chloride 101, Carbon Dioxide 24, Anion Gap 10.9, BUN 17, Creatinine 1.00, Estimated Creat Clear 136, Estimated GFR 77, Est GFR ( Amer) 93, Glucose 139 H, Lactate 0.9, Calcium 10.0, Total Bilirubin 0.8, AST 37, ALT 44, Alkaline Phosphatase 77, Total Protein 7.1, Albumin 4.3, Globulin 2.8, Albumin/Globulin Ratio 1.5, Lipase 159 07/28/24 19:35 07/28/24 19:35 Orders (Tests/Meds): ED MEDICATIONS Discontinued Medications Generic Name Dose Route Start Last Admin Trade Name Freq PRN Reason Stop Dose Admin Hydromorphone HCl 0.5 mg 07/28/24 20:11 07/28/24 20:46 Hydromorphone 2mg/Ml Syringe IV 07/28/24 20:12 0.5 mg ONCE ONE Administration Sodium Chloride 1,000 mls @ 999 mls/hr 07/28/24 19:34 07/28/24 19:52 Sod Chlor 0.9% 1000ml Bag IV 07/28/24 20:34 999 mls/hr .Q1H1M ONE Administration Piperacillin Sod/Tazobactam 100 mls @ 200 mls/hr 07/28/24 20:11 07/28/24 20:46 Sod 4.5 gm/ Sodium Chloride IV 07/28/24 20:40 200 mls/hr ONCE ONE Administration Iopamidol 75 ml 07/28/24 21:11 07/28/24 21:18 Iopamidol-370 (76%);100ml Bottle IV 07/28/24 21:12 75 ml ONCE ONE Administration Ketorolac Tromethamine 15 mg 07/28/24 20:11 07/28/24 20:46 Ketorolac 30mg/Ml Vial IV 07/28/24 20:12 15 mg ONCE ONE Administration Sodium Chloride 10 ml 07/28/24 21:11 07/28/24 21:17 Sodium Chloride 0.9% 10ml Syr (Rad Only) IV 07/28/24 21:12 10 ml ONCE ONE Administration ORDERS Category Date Time Status CT abdomen pelvis w con Stat Cat Scan 07/28/24 20:46 Completed XR acute abdomen series Stat Exams 07/28/24 19:00 Completed Complete Blood Count Auto Diff Stat Lab 07/28/24 19:35 Completed Comprehensive Metabolic Panel Stat Lab 07/28/24 19:35 Completed Lactic Acid Stat Lab 07/28/24 19:35 Completed Lipase Stat Lab 07/28/24 19:35 Completed Rapid PCR Covid and Flu A/B Stat Lab 07/28/24 18:53 Completed Urinalysis and Microscopic Stat Lab 07/28/24 19:21 Completed Medical Decision Narrative: This is a 59-year-old male history of hypertension, cholecystectomy, appendectomy, appendiceal cancer status post ascending colectomy, diverticulosis presenting with abdominal pain. Patient states that he started having a migraine last night, 07/27 and some abdominal pain associated with it. Abdominal pain did not stop. Started getting worse throughout today. Moderate to severe, so came in. 1 episode of vomiting that was nonbloody, nonbilious. No diarrhea or blood in his stool. No fevers or chills or any other concerning signs or symptoms. History was obtained via conversation with patient. On arrival, patient hemodynamically stable, alert, oriented x4, appropriate, GCS 15, moving all extremities spontaneously, pupils equal and reactive to light. Full physical exam performed and significant for uncomfortable appearing male in mild distress secondary to pain. He is splinting in his chair. Abdomen is peritonitic with guarding. No rebound or rigidity. Primarily in suprapubic area. Borderline tachycardic, hypertensive. Differential includes PUD, gastritis, enteritis, gastroenteritis, pancreatitis, SBO, colitis, diverticulitis, nephrolithiasis, UTI, cholecystitis, choledocholithiasis, appendicitis, torsion, hepatitis, aortic pathology, mesenteric ischemia among others. Patient placed on continuous cardiac monitoring and continuous pulse ox with initial blood pressure 157/73, heart rate 96, saturation 96% on room air. Patient was given Toradol, Dilaudid, Zofran, fluids for symptomatic management and correction of underlying abnormalities. Workup independently interpreted and significant for leukocytosis nearly 21,000. Normal lactate. Sodium low at 132. On independent interpretation of imaging, patient has uncomplicated sigmoid diverticulitis. See radiology read for full review of final results. On reevaluation, patient resting much more comfortably stating that his pain is largely gone. Given patient for sepsis, elevated white count, peritonitic exam, patient appropriate for admission. Given patient presentation, workup, history, this most likely represents sigmoid diverticulitis without perforation or abscess. I had interactive discussion with hospitalist, agreeable to admission. Because patient high risk for clinical decompensation, deemed appropriate for inpatient admission. Results were relayed to patient who voiced understanding and patient was agreeable to inpatient admission and management. Patient was admitted to the hospital for further definitive management. Investment Director disclaimer Much of this encounter note is an electronic respiratory care program director spoken language to printed text. Electronic respiratory care program director of the spoken language may permit errors. Although I have reviewed the note, some errors may still exist. Critical Care Critical Care Time Critical Care Time: No
--- NOTE | 2024-07-28 20:54 | PC.NURSE ---
Pt tarnsferred to room 7 Report given to Genesis CAREY
--- NOTE | 2024-07-28 21:04 | PC.NURSE ---
Pt to CT scan via stretcher
[2024-07-28] MEDS: SODIUM CHLORIDE 0.9% 10ML SYR (RAD ONLY) 10 ML IV (21:17)
[2024-07-28] MEDS: IOPAMIDOL-370 (76%);100ML BOTTLE 75 ML IV (21:18)
[2024-07-28 22:47] VITALS: PULSE 70; RESP 18; O2SAT 96
--- NOTE | 2024-07-28 23:23 | PC.NURSE ---
Patient arrived to floor via wheelchair from ED at 23:22.
[2024-07-28 23:24] VITALS: BP 125/76; PULSE 67; RESP 20; TEMP 36.6; O2SAT 98
[2024-07-28 23:32] VITALS: BP 108/76; PULSE 70; RESP 18; TEMP 36.6; O2SAT 87; BMI 39.0
--- NOTE | 2024-07-28 23:39 | P.HP_ITS ---
<Statement entered by Branden Arreguin MD - 07/29/24 22:45> Rounded on patient after nurse practitioner. Personally examined and interviewed patient. Agree with exam findings and care plan as documented. Sepsis Diverticulitis - Heart rate in the 90s, white count of 20,000, diverticulitis on CT imaging. Meeting sepsis criteria. Continue broad-spectrum antibiotics with Zosyn 4.5 g every 6 hours IV. -Clear liquid diet. -GI consulted to evaluate in the morning -Repeat CBC, CMP, magnesium ordered for the morning -Per my review of CT, has no clear free air or abscess. Does have inflammation and stranding around sigmoid colon consistent with diverticulitis. -Dilaudid 2 mg IV every 4 hours as needed for severe breakthrough pain, monitor for toxicity. Toradol 50 mg IV every 6 hours as needed for moderate to severe pain. -Zofran 4 mg IV every 8 hours for nausea History of Present Illness *Admission Date: 07/28/24 *Reason for visit:: Severe abdominal pain with diverticulitis *History of present illness: This 59-year-old man has been having increased abdominal discomfort that has become quite severe in the past 24 hours.. Patient noted increased abdominal pain and migraine last night. Patient did vomit 1 time. m abdominal history includes cholecystectomy. 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 Patient has done well since then. But presently the pain is now increased very severe showing guarding question peritonitis with an increased WBCs to 21,000. Past medical and history includes SVT approximately 2 years ago has not recurred.. Remarkable for in May seeing primary care 3 times for cough and bronchitis. Patient notes that he was on 2 different antibiotics for an extended period of time and just recently finished them last Friday. Patient noted that his stools are usually soft sometimes diarrhea since he had the problems as a child. He says he did notice that he had a very loose stool then a very solid 1 and then another one that was loose. Question relevancy as normal versus the fact he had been on several weeks of antibiotics. Will do stool specimen to rule out any C. difficile.. Have spoken with the ER provider. First dose of Zosyn has been given. For pain control Dilaudid and Toradol were given which helped some. But noting during the exam even light touching to the lower abdomen causes significant pain. Plan at this time to continue antibiotics, have patient seen by gastroenterology. Treat with medication for comfort and to decrease any gastric acid. Also stool specimen ordered to rule out any other infection/C. difficile [facility] Disclaimer: The information contained in this section may have been updated after the patient was seen, as this information can be updated by other users. Medical History Acute maxillary sinusitis Urinary incontinence Acute bronchitis Right otitis media Palpitations Creatinine elevation Colon cancer Surgical History H/O colectomy Family History Mother Diabetes Father Diabetes Hypertension Social History Smoking Status: Never smoker years smoked: 25 alcohol intake: never substance use type: denies use current occupational status: employed Travel in the last 8 weeks: Inside the [place] Have you lived/traveled outside US in past 30 days?: No Contact w/someone who lives/traveled outside US past 30 days?: No Exposure to someone with infectious disease in past 14 days?: No Do you have a fever (greater than 100.4 F or 38 C)?: No Have you tested positive for COVID-19: No Exposed to someone with COVID-19 in past 14 days?: No Do you have a sore throat?: No Do you have a cough?: No Do you have any weakness?: No Do you have any diarrhea?: No Are you experiencing any unusual bleeding?: No Do you have any muscle aches/pain?: No Do you have any abdominal pain?: No Are you experiencing loss of taste or smell?: No Other Medical History Have you received the Flu Vaccine for this season: No Have you received the Pneumonia Vaccine: No Review of Systems Review of Systems Review of systems:: pertinent systems reviewed and negative unless documented below Constitutional Constitutional: Reports as per HPI and Reports poor appetite Eyes Eyes: Reports as per HPI ENT Ears, Nose, Mouth, and Throat: Reports as per HPI *Cardiovascular Cardiovascular: Reports as per HPI *Respiratory Respiratory: Reports as per HPI and Reports cough Comments: Patient noted for being treated for bronchitis and cough. Presently greatly improved, patient does have inhalers at home that he uses on a regular basis *Gastrointestinal Gastrointestinal: Reports abdominal pain, Reports loose stools and Reports vomiting *Genitourinary Genitourinary: Reports as per HPI *Musculoskeletal Musculoskeletal: Reports as per HPI Integumentary/Breasts Skin/Breast: Reports as per HPI *Neurologic Neurologic: Reports as per HPI Psychiatric Psychiatric: Reports as per HPI Endocrine Endocrine: Reports as per HPI Hematologic/Lymphatic Hematologic/Lymphatic: Reports as per HPI Allergic/Immunologic Allergic/Immunologic: Reports as per HPI Meds Home Medications and Allergies Home Medications ?Medication ?Instructions ?Recorded ?Confirmed ?Type albuterol sulfate 90 mcg/actuation 2 puff inhalation Q4-6H PRN 06/05/24 07/12/24 Rx aerosol inhaler shortness of breath or wheezing #8.5 grams albuterol 90 mcg-budesonide 80 2 inh inhalation 6XD PRN shortness 06/11/24 07/12/24 Rx mcg/actuation HFA aerosol inhaler of breath or wheezing #10.7 grams (Airsupra) amoxicillin 875 mg-potassium 1 tab PO BID 14 days #28 tabs 07/12/24 07/12/24 Rx clavulanate 125 mg tablet New Prescriptions to Start Prescriptions: Allergies Allergy/AdvReac Type Severity Reaction Status Date / Time tree and shrub pollen Allergy Mild Congested Verified 07/12/24 09:28 Exam Data for Last 24 hours Vital signs and Labs for Last 24 Hours: Temp Pulse Resp BP Pulse Ox O2 Del Method 98 F 67 20 125/76 96 Room Air 07/28/24 23:24 07/28/24 23:24 07/28/24 23:24 07/28/24 23:24 07/28/24 18:51 07/28/24 23:24 Laboratory Results - last 24 hr 07/28/24 18:53: SARS-CoV-2 (PCR) Not detected, Influenza A Untype (PCR) Not detected, Influenza Type B (PCR) Not detected 07/28/24 19:21: Urine Color Yellow, Urine Appearance Clear, Urine pH 6.5, Ur Specific [place] 1.015, Urine Protein Negative, Urine Glucose (UA) Negative, Urine Ketones Negative, Urine Blood Negative, Urine Nitrate Negative, Urine Bilirubin Negative, Urine Urobilinogen 0.2, Ur Leukocyte Esterase Negative, Urine RBC Occasional, Urine WBC Occasional, Ur Squamous Epith Cells Occasional, Urine Bacteria 1+, Urine Mucus 1+ 07/28/24 19:35: WBC 20.6 H*, RBC 5.80, Hgb 17.3, Hct 50.0, MCV 86.2, MCH 29.8, MCHC 34.6, RDW 13.6, Plt Count 212, MPV 10.2, Neut % (Auto) 77.7, Lymph % (Auto) 10.7, [place] % (Auto) 9.7 H, Eos % (Auto) 0.2, Baso % (Auto) 0.5, Neut # (Auto) 16.0 H, Lymph # (Auto) 2.2, [place] # (Auto) 2.0 H, Eos # (Auto) 0.1, Baso # (Auto) 0.1, Total Counted 100, Neutrophils % (Manual) 80 H, Lymphocytes % (Manual) 7 L, Monocytes % (Manual) 12 H, Eosinophils % (Manual) 1, Platelet Estimate Normal, RBC Morphology Normal, Sodium 132 L, Potassium 3.9, Chloride 101, Carbon Dioxide 24, Anion Gap 10.9, BUN 17, Creatinine 1.00, Estimated Creat Clear 136, Estimated GFR 77, Est GFR ( Amer) 93, Glucose 139 H, Lactate 0.9, Calcium 10.0, Total Bilirubin 0.8, AST 37, ALT 44, Alkaline Phosphatase 77, Total Protein 7.1, Albumin 4.3, Globulin 2.8, Albumin/Globulin Ratio 1.5, Lipase 159 I & O for Last 24 hours: Intake & Output 07/26/24 07/27/24 07/28/24 07/29/24 05:59 05:59 05:59 05:59 Weight 260 lb Radiology Reports for the Last 24 Hours: Diverticulitis sigmoid colon without abscess Constitutional Constitutional: moderate distress, obese and cooperative *Routine HEENT Exam Head: Present normocephalic and atraumatic Eye: Present EOMI, PERRL and normal accommodation ENT: Present mucous membranes moist and mucous membranes dry *Routine Neck Exam Neck: Present supple and full ROM Routine Chest/Breast/Axilla Exam Comments: No chest wall abnormalities found no pain, patient able to take deep breath without limitation *Routine Respiratory Exam Respiratory: Present CTA bilaterally, normal respiratory effort, able to speak in complete sentences and symmetric chest movement; Absent respiratory distress *Routine Cardiovascular Exam Cardiovascular: Present RRR, Normal S1, Normal S2 and tachycardia *Routine Abdominal Exam Abdominal: Present soft, tenderness (Severe to palpation lower abdomen both sides) and guarding *Routine Rectal Exam Rectal:: deferred *Routine Genitalia Exam Genitalia:: deferred *Routine Extremities Exam Comments: Both upper and lower extremities normal to exam no signs of edema, no restrictions in range of motion Routine Back/Spine/Pelvis Exam Back/Spine: Present full ROM Comments: No back tenderness found patient is able to sit up and move if need to to turn to sides without difficulty *Routine Skin Exam Skin: Present intact, dry, warm and normal turgor *Routine Neurological Exam Neurological: Present alert, oriented X3, CN II-XII intact, normal reflexes, moving all extremities, normal tone, vision grossly intact, hearing grossly intact and normal speech Routine Psychiatric Exam Psychiatric: Present normal affect, normal thought process, cooperative, good insight and good judgment H&P: Result Impressions 1. Acute abdominal pain with 1 episode of vomiting diverticulitis found on CT scan Imaging and Cardiology CT scan - abdomen: Additional comments: Diverticulitis sigmoid colon without signs of free fluid or abscess Assessment and Plan *Assessment and plan (1) Diverticulitis of sigmoid colon: Status: Acute Category: Medical Code(s): K57.32 - Diverticulitis of large intestine without perforation or abscess without bleeding (2) Atelectasis, right: Status: Acute Category: Medical Code(s): J98.11 - Atelectasis (3) Abdominal pain: Status: Acute Qualifiers: Abdominal location: lower abdomen, unspecified Qualified Code(s): R10.30 - Lower abdominal pain, unspecified Category: Medical Code(s): R10.9 - Unspecified abdominal pain Plan Patient will be placed on the floor., Will continue antibiotics for treatment of diverticulitis. Consult for gastrology. Will continue just clear liquid diets at this time. Also medication ordered for pain control. Do hope that the antibiotic will take care of this problem alone that surgery will not be needed. The scans that have been checked shows no abscess or free fluid. Patient had been on antibiotics 2 rounds through May. Will also get stool cultures making sure there is is not Clostridium differential added on as a secondary problem
[2024-07-28] MEDS: LACTATED RINGERS 1000ML 1,000 ML 100 ML IV (23:45)
[2024-07-29] MEDS: PIPERACILLIN/TAZO 3.375 GM in 0.9 % SODIUM CHLORIDE 50 ML IV ×4 (00:20→18:53)
--- NOTE | 2024-07-29 03:50 | PC.NURSE ---
Mr Castro Noland was newly admitted this shift on behalf of the documented diagnosis diverticulitis. Upon assessment, the patient reported that the onset of his abdominal pain has been getting worse over the past day. He also stated that he has additionally been having pain with urination and migraine-level headaches. Eating solid foods at home was aggravating his abdominal pain as well. Abdominal pain is primarily in his lower quadrants. Abdominal pain + headache -reported once since arrival to floor- was treated per MAR with Toradol; Dilautid also available. Thus far, the patient has not requested any more pain medication, and he has been resting in bed with eyes closed, respirations even/unlabored, and no apparent distress. Palpation of his abdomen was soft but tender to touch; bowel sounds were active in all four quadrants. Admission assessments and home medication reconciliation completed by me this shift. Auscultation of his heart and lungs were within normal findings. The patient stated that he has been having loose bowel movements, but explained that this has chronically been his normal given his GI history. He has not had a bowel movement thus far this shift; stool sample remains uncollected. He has been tolerating a clear liquid diet; apple juice and ice water was given to him upon arrival to the floor. He ambulates independently without difficulties ( unless in severe pain ). Lactated Ringers continue to infuse at 100 mL/hr. Intravenous antibiotic regimen (Pipercillin) was also initiated this shift (not infused concurrently with LRs due to incompatibility). At this time, the patient is resting in bed without further complaints. Call light within reach.
[2024-07-29 04:00] VITALS: BP 118/68; PULSE 60; RESP 17; TEMP 37.3; O2SAT 96; BMI 38.9
[2024-07-29 07:32] LABS: Basophils # 0.1 K/mm3 (0-0.2); Basophils % 0.8 % (0.1-2.0); Eosinophils # 0.2 K/mm3 (0.0-0.4); Eosinophils % 1.4 % (0.1-12.0); Hematocrit 46.5 % (42.0-52.0); Hemoglobin 15.9 g/dL (14.1-18.0); Lymphocytes # 1.7 K/mm3 (0.7-4.5); Lymphocytes % 13.1 % (10-50); Mean Corpuscular HGB Conc 34.2 g/dL (31.8-35.4); Mean Corpuscular Hemoglobin 30.3 pg (27.0-31.2); Mean Corpuscular Volume 88.6 fl (80-94); Mean Platelet Volume 11.1 fl (7.4-10.4); Monocytes # 1.6 K/mm3 (0.1-1.0); Monocytes % 12.2 % (1.7-9.3); Neutrophils # 9.5 K/mm3 (1.8-7.8); Neutrophils % 71.2 % (37.0-80.0); Platelet Count 128 K/mm3 (142-424); Red Blood Count 5.25 M/mm3 (4.60-6.20); Red Cell Distribution Width 13.7 % (11.5-17.5); White Blood Count 13.3 K/mm3 (4.8-10.8)
--- NOTE | 2024-07-29 07:50 | HMH.PHAINT1 ---
Pharmacy Intervention Comments: HOME MEDICAITON LIST VERIFIED USING LIST FROM OUTPATIENT PHARMACY
[2024-07-29 07:54] LABS: Alanine Aminotransferase 34 U/L (12-78); Albumin Level 3.5 g/dl (3.5-5.0); Albumin/Globulin Ratio 1.4 (1.1-1.8); Alkaline Phosphatase 58 U/L (38-126); Anion Gap 6.9 mEq/L (5-15); Aspartate Amino Transferase 52 U/L (17-59); Bilirubin,Total 1.7 mg/dl (0.2-1.3); Blood Urea Nitrogen 13 mg/dl (9-20); Calcium 9.1 mg/dl (8.4-10.2); Carbon Dioxide 23 mmol/L (22.0-30.0); Chloride 106 mmol/L (98-107); Creatinine Clearance Estimated 158 mL/min (50-200); Estimated Glomerular Filt Rate 87 ml/min (>60); GFR (African American) 105 ML/MIN (>60); Globulin 2.5 g/dL (1.3-3.2); Glucose 104 mg/dl (74-100); Magnesium 1.8 mg/dl (1.6-2.3); Potassium 3.9 mmoL/L (3.5-5.1); Sodium 132 mmol/L (136-145)
[2024-07-29 07:59] LABS: C-Reactive Protein 94.5 mg/L (0-4)
[2024-07-29 08:00] VITALS: BP 128/78; PULSE 62; RESP 17; TEMP 36.9; O2SAT 98
[2024-07-29 08:16] LABS: Lactic Acid 0.9 mmol/L (0.7-2.1)
[2024-07-29] MEDS: ENOXAPARIN 40MG/0.4ML SYRINGE 40 MG SUBCUT (09:05)
[2024-07-29] MEDS: KETOROLAC 30MG/ML VIAL 15 MG IV ×2 (09:11→16:51)
--- NOTE | 2024-07-29 09:40 | PC.NURSE ---
pt complains that is is painful to urinate. states his urine doesnt appear any different than normal. Will speak to MD about this
[2024-07-29] MEDS: MAGNESIUM SULFATE IN WATER 2 GM/50 ML PIGGYBACK IV (11:53)
[2024-07-29] MEDS: ACETAMINOPHEN 325MG TAB 650 MG PO (13:15)
--- NOTE | 2024-07-29 15:05 | EXP.GE.CONS ---
History of Present Illness *Admission Date: 07/28/24 *History of present illness: Mr. Noland is a 59-year-old gentleman with migraine headaches who presents with acute lower abdominal pain. This had become more severe and he presented with pain and leukocytosis with a white blood cell count of 21,000. 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 He does have colonoscopies regularly every 3 years at the [facility] in [place]. The patient's white blood cell count diminished to 13.3 overnight. He has been on Zosyn during the hospitalization because his CAT scan had shown mild acute sigmoid diverticulitis. The patient reports no change in bowel habits, diarrhea or constipation. He has had no melena or hematochezia or bright red blood per rectum. He reports no fever. [facility] Disclaimer: The information contained in this section may have been updated after the patient was seen, as this information can be updated by other users. Medical History (Updated 07/29/24 @ 15:09 by Koko Lazcano II, MD) Acute maxillary sinusitis Urinary incontinence Acute bronchitis Right otitis media Palpitations Creatinine elevation Colon cancer Surgical History Hx of cholecystectomy History of appendectomy History of cardiac radiofrequency ablation H/O colectomy Family History Mother Diabetes Father Diabetes Hypertension Social History (Updated 07/29/24 @ 00:06 by Kayla Arreola RN) Smoking Status: Never smoker years smoked: 25 alcohol intake: never substance use type: denies use current occupational status: employed Travel in the last 8 weeks: Inside the [place] Have you lived/traveled outside US in past 30 days?: No Contact w/someone who lives/traveled outside US past 30 days?: No Exposure to someone with infectious disease in past 14 days?: No Do you have a fever (greater than 100.4 F or 38 C)?: No Have you tested positive for COVID-19: No Exposed to someone with COVID-19 in past 14 days?: No Do you have a sore throat?: No Do you have a cough?: No Do you have any weakness?: No Do you have any diarrhea?: No Are you experiencing any unusual bleeding?: No Do you have any muscle aches/pain?: No Do you have any abdominal pain?: No Are you experiencing loss of taste or smell?: No Review of Systems *Neurologic Neurologic: Reports as per [facility] Meds Home Medications and Allergies Home Medications ?Medication ?Instructions ?Recorded ?Confirmed ?Type albuterol sulfate 90 mcg/actuation 2 puff inhalation Q4-6H PRN 06/05/24 07/29/24 Rx aerosol inhaler shortness of breath or wheezing #8.5 grams ciprofloxacin HCl 500 mg tablet 500 mg PO BID 6 days #12 tabs 07/29/24 Rx metronidazole 500 mg tablet 500 mg PO Q8H 6 days #18 tabs 07/29/24 Rx New Prescriptions to Start Prescriptions: ciprofloxacin Branden Corcoran metronidazole Branden Arreguin Allergies Allergy/AdvReac Type Severity Reaction Status Date / Time tree and shrub pollen Allergy Mild Congested Verified 07/12/24 09:28 Exam (Inpt) Vital signs and Labs for Last 24 Hours: Temp Pulse Resp BP Pulse Ox O2 Del Method 98.5 F 62 17 128/78 98 Room Air 07/29/24 08:00 07/29/24 08:00 07/29/24 08:00 07/29/24 08:00 07/29/24 08:00 07/29/24 13:00 Laboratory Results - last 24 hr 07/28/24 18:53: SARS-CoV-2 (PCR) Not detected, Influenza A Untype (PCR) Not detected, Influenza Type B (PCR) Not detected 07/28/24 19:21: Urine Color Yellow, Urine Appearance Clear, Urine pH 6.5, Ur Specific [place] 1.015, Urine Protein Negative, Urine Glucose (UA) Negative, Urine Ketones Negative, Urine Blood Negative, Urine Nitrate Negative, Urine Bilirubin Negative, Urine Urobilinogen 0.2, Ur Leukocyte Esterase Negative, Urine RBC Occasional, Urine WBC Occasional, Ur Squamous Epith Cells Occasional, Urine Bacteria 1+, Urine Mucus 1+ 07/28/24 19:35: WBC 20.6 H*, RBC 5.80, Hgb 17.3, Hct 50.0, MCV 86.2, MCH 29.8, MCHC 34.6, RDW 13.6, Plt Count 212, MPV 10.2, Neut % (Auto) 77.7, Lymph % (Auto) 10.7, [place] % (Auto) 9.7 H, Eos % (Auto) 0.2, Baso % (Auto) 0.5, Neut # (Auto) 16.0 H, Lymph # (Auto) 2.2, [place] # (Auto) 2.0 H, Eos # (Auto) 0.1, Baso # (Auto) 0.1, Total Counted 100, Neutrophils % (Manual) 80 H, Lymphocytes % (Manual) 7 L, Monocytes % (Manual) 12 H, Eosinophils % (Manual) 1, Platelet Estimate Normal, RBC Morphology Normal, Sodium 132 L, Potassium 3.9, Chloride 101, Carbon Dioxide 24, Anion Gap 10.9, BUN 17, Creatinine 1.00, Estimated Creat Clear 136, Estimated GFR 77, Est GFR ( Amer) 93, Glucose 139 H, Lactate 0.9, Calcium 10.0, Total Bilirubin 0.8, AST 37, ALT 44, Alkaline Phosphatase 77, Total Protein 7.1, Albumin 4.3, Globulin 2.8, Albumin/Globulin Ratio 1.5, Lipase 159 07/29/24 07:15: WBC 13.3 H D, RBC 5.25, Hgb 15.9, Hct 46.5, MCV 88.6, MCH 30.3, MCHC 34.2, RDW 13.7, Plt Count 128 L D, MPV 11.1 H, Neut % (Auto) 71.2, Lymph % (Auto) 13.1, [place] % (Auto) 12.2 H, Eos % (Auto) 1.4, Baso % (Auto) 0.8, Neut # (Auto) 9.5 H, Lymph # (Auto) 1.7, [place] # (Auto) 1.6 H, Eos # (Auto) 0.2, Baso # (Auto) 0.1, Sodium 132 L, Potassium 3.9, Chloride 106, Carbon Dioxide 23, Anion Gap 6.9, BUN 13, Creatinine 0.90, Estimated Creat Clear 158, Estimated GFR 87, Est GFR ( Amer) 105, Glucose 104 H D, Lactate 0.9, Calcium 9.1, Magnesium 1.8, Total Bilirubin 1.7 H, AST 52 D, ALT 34, Alkaline Phosphatase 58, C-Reactive Protein 94.5 H, Total Protein 6.0 L, Albumin 3.5 D, Globulin 2.5, Albumin/Globulin Ratio 1.4 I & O for Labs for Last 24 Hours: Intake & Output 07/26/24 07/27/24 07/28/24 07/29/24 23:59 23:59 23:59 23:59 Intake Total 780 / 780 Output Total 0 / 0 Balance 780 / 780 Weight 272 lb 9.6 oz 272 lb 3.2 oz Comments:: Normoactive bowel sounds moderate tenderness in the lower abdomen with guarding and mild rebound tenderness Results Labs 07/29/24 07:15 07/29/24 07:15 Labs: Laboratory Results - last 24 hr 07/28/24 18:53: SARS-CoV-2 (PCR) Not detected, Influenza A Untype (PCR) Not detected, Influenza Type B (PCR) Not detected 07/28/24 19:21: Urine Color Yellow, Urine Appearance Clear, Urine pH 6.5, Ur Specific [place] 1.015, Urine Protein Negative, Urine Glucose (UA) Negative, Urine Ketones Negative, Urine Blood Negative, Urine Nitrate Negative, Urine Bilirubin Negative, Urine Urobilinogen 0.2, Ur Leukocyte Esterase Negative, Urine RBC Occasional, Urine WBC Occasional, Ur Squamous Epith Cells Occasional, Urine Bacteria 1+, Urine Mucus 1+ 07/28/24 19:35: WBC 20.6 H*, RBC 5.80, Hgb 17.3, Hct 50.0, MCV 86.2, MCH 29.8, MCHC 34.6, RDW 13.6, Plt Count 212, MPV 10.2, Neut % (Auto) 77.7, Lymph % (Auto) 10.7, [place] % (Auto) 9.7 H, Eos % (Auto) 0.2, Baso % (Auto) 0.5, Neut # (Auto) 16.0 H, Lymph # (Auto) 2.2, [place] # (Auto) 2.0 H, Eos # (Auto) 0.1, Baso # (Auto) 0.1, Total Counted 100, Neutrophils % (Manual) 80 H, Lymphocytes % (Manual) 7 L, Monocytes % (Manual) 12 H, Eosinophils % (Manual) 1, Platelet Estimate Normal, RBC Morphology Normal, Sodium 132 L, Potassium 3.9, Chloride 101, Carbon Dioxide 24, Anion Gap 10.9, BUN 17, Creatinine 1.00, Estimated Creat Clear 136, Estimated GFR 77, Est GFR ( Amer) 93, Glucose 139 H, Lactate 0.9, Calcium 10.0, Total Bilirubin 0.8, AST 37, ALT 44, Alkaline Phosphatase 77, Total Protein 7.1, Albumin 4.3, Globulin 2.8, Albumin/Globulin Ratio 1.5, Lipase 159 07/29/24 07:15: WBC 13.3 H D, RBC 5.25, Hgb 15.9, Hct 46.5, MCV 88.6, MCH 30.3, MCHC 34.2, RDW 13.7, Plt Count 128 L D, MPV 11.1 H, Neut % (Auto) 71.2, Lymph % (Auto) 13.1, [place] % (Auto) 12.2 H, Eos % (Auto) 1.4, Baso % (Auto) 0.8, Neut # (Auto) 9.5 H, Lymph # (Auto) 1.7, [place] # (Auto) 1.6 H, Eos # (Auto) 0.2, Baso # (Auto) 0.1, Sodium 132 L, Potassium 3.9, Chloride 106, Carbon Dioxide 23, Anion Gap 6.9, BUN 13, Creatinine 0.90, Estimated Creat Clear 158, Estimated GFR 87, Est GFR ( Amer) 105, Glucose 104 H D, Lactate 0.9, Calcium 9.1, Magnesium 1.8, Total Bilirubin 1.7 H, AST 52 D, ALT 34, Alkaline Phosphatase 58, C-Reactive Protein 94.5 H, Total Protein 6.0 L, Albumin 3.5 D, Globulin 2.5, Albumin/Globulin Ratio 1.4 Assessment and Plan *Assessment and plan (1) Diverticulitis of sigmoid colon: Status: Acute Category: Medical Code(s): K57.32 - Diverticulitis of large intestine without perforation or abscess without bleeding (2) Lower abdominal pain: Status: Acute Category: Medical Code(s): R10.30 - Lower abdominal pain, unspecified Plan 1. Acute sigmoid diverticulitis. After reviewing CAT scan, I do not feel that this is mild but more moderate acute sigmoid diverticulitis but cannot see any microperforation or abscess. He clinically presents with more moderate to severe diverticulitis and this is new. I would continue intravenous antibiotics and consider interval CAT scan to assess evolution of the diverticulitis and determine whether this has progressed towards complicated with developing abscess or microperforation. The patient does have some guarding and mild peritoneal signs with spike in white blood cell count.
[2024-07-29 16:00] VITALS: BP 118/85; PULSE 64; RESP 19; O2SAT 96
--- NOTE | 2024-07-29 18:59 | PC.NURSE ---
pt reports feeling improved. he ambulated around the unit independently with his spouse. tolerating po intake well
--- NOTE | 2024-07-29 19:01 | EXP.ACUTE.PN ---
Subjective *Date: 07/29/24 *Time: 22:38 Interval history: Afebrile and hemodynamically stable this morning. Tolerating clear liquid. Denies chest pain or shortness of breath. Complaining of lower abdominal pressure and burning. Some urgency with urination. No nausea or vomiting. Medical Exam Vital signs and Labs for Last 24 Hours: Vital Signs Temp Pulse Pulse Resp BP BP Pulse Ox 07/29/24 17:00 07/29/24 16:00 64 19 118/85 96 07/29/24 15:00 07/29/24 13:00 07/29/24 11:00 07/29/24 09:00 07/29/24 08:00 07/29/24 08:00 98.5 F 62 17 128/78 98 07/29/24 06:40 07/29/24 05:00 07/29/24 04:00 99.2 F 60 17 118/68 96 07/29/24 03:00 07/29/24 01:00 07/28/24 23:32 97.8 F 70 18 108/76 L 87 L 07/28/24 23:24 98 F 67 20 125/76 07/28/24 22:47 70 18 96 O2 Del Method 07/29/24 17:00 Room Air 07/29/24 16:00 Room Air 07/29/24 15:00 Room Air 07/29/24 13:00 Room Air 07/29/24 11:00 Room Air 07/29/24 09:00 Room Air 07/29/24 08:00 Room Air 07/29/24 08:00 Room Air 07/29/24 06:40 Room Air 07/29/24 05:00 Room Air 07/29/24 04:00 Room Air 07/29/24 03:00 Room Air 07/29/24 01:00 Room Air 07/28/24 23:32 Room Air 07/28/24 23:24 Room Air 07/28/24 22:47 Room Air Intake and Output 07/29/24 07/29/24 07/29/24 07:59 15:59 23:59 Intake Total 300 / 1920 1020 / 1920 600 / 1920 Output Total 0 / 0 0 / 0 0 / 0 Balance 300 / 1920 1020 / 1920 600 / 1920 Intake: Intake, Oral Amount 300 / 1920 1020 / 1920 600 / 1920 Output: Output, Urine Amount 0 / 0 0 / 0 0 / 0 Other: Number of Voids 1 0 Number of Unmeasured Voids 1 1 Weight 123.468 kg Patient Weight 07/29/24 23:59 Weight 123.468 kg Laboratory Results - last 24 hr 07/28/24 18:53: SARS-CoV-2 (PCR) Not detected, Influenza A Untype (PCR) Not detected, Influenza Type B (PCR) Not detected 07/28/24 19:21: Urine Color Yellow, Urine Appearance Clear, Urine pH 6.5, Ur Specific [place] 1.015, Urine Protein Negative, Urine Glucose (UA) Negative, Urine Ketones Negative, Urine Blood Negative, Urine Nitrate Negative, Urine Bilirubin Negative, Urine Urobilinogen 0.2, Ur Leukocyte Esterase Negative, Urine RBC Occasional, Urine WBC Occasional, Ur Squamous Epith Cells Occasional, Urine Bacteria 1+, Urine Mucus 1+ 07/28/24 19:35: WBC 20.6 H*, RBC 5.80, Hgb 17.3, Hct 50.0, MCV 86.2, MCH 29.8, MCHC 34.6, RDW 13.6, Plt Count 212, MPV 10.2, Neut % (Auto) 77.7, Lymph % (Auto) 10.7, [place] % (Auto) 9.7 H, Eos % (Auto) 0.2, Baso % (Auto) 0.5, Neut # (Auto) 16.0 H, Lymph # (Auto) 2.2, [place] # (Auto) 2.0 H, Eos # (Auto) 0.1, Baso # (Auto) 0.1, Total Counted 100, Neutrophils % (Manual) 80 H, Lymphocytes % (Manual) 7 L, Monocytes % (Manual) 12 H, Eosinophils % (Manual) 1, Platelet Estimate Normal, RBC Morphology Normal, Sodium 132 L, Potassium 3.9, Chloride 101, Carbon Dioxide 24, Anion Gap 10.9, BUN 17, Creatinine 1.00, Estimated Creat Clear 136, Estimated GFR 77, Est GFR ( Amer) 93, Glucose 139 H, Lactate 0.9, Calcium 10.0, Total Bilirubin 0.8, AST 37, ALT 44, Alkaline Phosphatase 77, Total Protein 7.1, Albumin 4.3, Globulin 2.8, Albumin/Globulin Ratio 1.5, Lipase 159 07/29/24 07:15: WBC 13.3 H D, RBC 5.25, Hgb 15.9, Hct 46.5, MCV 88.6, MCH 30.3, MCHC 34.2, RDW 13.7, Plt Count 128 L D, MPV 11.1 H, Neut % (Auto) 71.2, Lymph % (Auto) 13.1, [place] % (Auto) 12.2 H, Eos % (Auto) 1.4, Baso % (Auto) 0.8, Neut # (Auto) 9.5 H, Lymph # (Auto) 1.7, [place] # (Auto) 1.6 H, Eos # (Auto) 0.2, Baso # (Auto) 0.1, Sodium 132 L, Potassium 3.9, Chloride 106, Carbon Dioxide 23, Anion Gap 6.9, BUN 13, Creatinine 0.90, Estimated Creat Clear 158, Estimated GFR 87, Est GFR ( Amer) 105, Glucose 104 H D, Lactate 0.9, Calcium 9.1, Magnesium 1.8, Total Bilirubin 1.7 H, AST 52 D, ALT 34, Alkaline Phosphatase 58, C-Reactive Protein 94.5 H, Total Protein 6.0 L, Albumin 3.5 D, Globulin 2.5, Albumin/Globulin Ratio 1.4 I & O for Labs for Last 24 Hours: Intake & Output 07/26/24 07/27/24 07/28/24 07/29/24 23:59 23:59 23:59 23:59 Intake Total 1919 Output Total 0 / 0 Balance 1919 Weight 123.649 kg 123.468 kg Constitutional: Present no acute distress, obese and cooperative Head: Present atraumatic and normocephalic ENT: Present normal exam Respiratory: Present normal respiratory effort; Absent rhonchi or wheezes Cardiac: Present Reg Rate and Rhythm GI: Present soft, tenderness (Lower abdomen, worse in left lower abdomen.) and normal bowel sounds; Absent distention Extremities: Present normal inspection and full ROM Skin: Present intact; Absent erythema Neuro: Present Grossly Intact, alert, awake, oriented x 3 and moves all extremities Assessment and Plan *Assessment and plan (1) Diverticulitis of sigmoid colon: Status: Acute Category: Medical Code(s): K57.32 - Diverticulitis of large intestine without perforation or abscess without bleeding (2) Atelectasis, right: Status: Acute Category: Medical Code(s): J98.11 - Atelectasis (3) Abdominal pain: Status: Acute Qualifiers: Abdominal location: lower abdomen, unspecified Qualified Code(s): R10.30 - Lower abdominal pain, unspecified Category: Medical Code(s): R10.9 - Unspecified abdominal pain (4) Obesity (BMI 30-39.9): Status: Acute Category: Medical Code(s): E66.9 - Obesity, unspecified Plan 59-year-old male who presented with moderate diverticulitis. Also meeting sepsis criteria with tachycardia and leukocytosis. Admitted to medicine for further management. Tolerating IV antibiotics. Seeing some improvement this morning. Tolerating clear liquids. GI consulted and assisting with care. Continues to require inpatient management. Anticipate discharge tomorrow. Problems addressed as follows: Sepsis Diverticulitis - Heart rate in the 90s, white count of 20,000, diverticulitis on CT imaging. Meeting sepsis criteria. Continue broad-spectrum antibiotics with Zosyn 4.5 g every 6 hours IV. -Advance diet to low residue. - GI evaluated. Recommend continued monitoring with inpatient antibiotics per discussion -Will transition to ciprofloxacin and Flagyl at discharge to complete at least 7 days of antibiotics -If does well overnight, will consider discharge tomorrow. -White count improved from 20-13. Repeat CBC, CMP, magnesium ordered for the morning -Kidney function remains normal with BUN 13, creatinine 0.9. -CRP elevated at 94. -Dilaudid 2 mg IV every 4 hours as needed for severe breakthrough pain, monitor for toxicity. Toradol 50 mg IV every 6 hours as needed for moderate to severe pain. -Zofran 4 mg IV every 8 hours for nausea Dysuria likely secondary to inflammation of bladder due to proximity to inflammation of the sigmoid colon. No concern for UTI at this time. Obesity complicates all aspects of his care. Full code Lovenox 40 mg subcu daily low residue diet
[2024-07-29 20:00] VITALS: BP 128/78; PULSE 63; RESP 16; TEMP 36.7; O2SAT 94
[2024-07-29] MEDS: HYDROMORPHONE 2MG/ML SYRINGE 2 MG IV (23:05)
[2024-07-29] MEDS: ONDANSETRON 4MG/2ML VIAL 4 MG IV (23:35)
[2024-07-30] MEDS: PIPERACILLIN/TAZO 3.375 GM in 0.9 % SODIUM CHLORIDE 50 ML IV ×4 (00:23→18:29)
[2024-07-30 04:00] VITALS: BP 125/78; PULSE 69; RESP 16; TEMP 36.8; O2SAT 92; BMI 39.1
--- NOTE | 2024-07-30 04:10 | PC.NURSE ---
Patient is alert and oriented x4. Patient was observed to have eyes closed, respirations even and unlabored on room air, and no apparent distress for the majority of the night. However, after approximately 23:00 this shift, the patient was starting to have severe upper abdominal pain ( in [my] stomach ) and was feeling very nauseous. Prior to 23:00, the patient did not report any abdominal pain at all; however, he continues to complain of headaches every now and then. Dilautid and Zofran were given per JUL this shift. IV antibiotics are continuing to be administered per JUL. LR fluid infusion was discontinued this shift. Auscultation of heart, bowels (hyperactive), and lungs remain within normal findings. Patient continues to ambulate independently without difficulties. shift production supervisor staff reiterated to the patient about the importance of obtaining a stool sample the next time he has a bowel movement (remains uncollected from previous shift; uncollected during this shift thus far). He has not had a bowel movement this shift; patient verbalized understanding to notify staff when ready to obtain. He continues to report having pain with urination. Patient stated that he has been having rumbling in his stomach any time he eats or drinks; diet has been inadequately tolerated this shift. At this time, the patient is resting in bed without further complaints. Pain in control at this time. Vital signs stable. Call light within reach.
[2024-07-30 06:27] LABS: Basophils # 0.1 K/mm3 (0-0.2); Basophils % 0.6 % (0.1-2.0); Eosinophils # 0.1 K/mm3 (0.0-0.4); Eosinophils % 0.9 % (0.1-12.0); Hematocrit 46.6 % (42.0-52.0); Hemoglobin 16.2 g/dL (14.1-18.0); Lymphocytes # 1.7 K/mm3 (0.7-4.5); Lymphocytes % 12.9 % (10-50); Mean Corpuscular HGB Conc 34.8 g/dL (31.8-35.4); Mean Corpuscular Volume 86.3 fl (80-94); Monocytes # 1.2 K/mm3 (0.1-1.0); Monocytes % 9.3 % (1.7-9.3); Neutrophils # 9.7 K/mm3 (1.8-7.8); Neutrophils % 74.8 % (37.0-80.0); Platelet Count 174 K/mm3 (142-424); Red Cell Distribution Width 13.3 % (11.5-17.5)
[2024-07-30 07:04] LABS: Alanine Aminotransferase 35 U/L (12-78); Albumin Level 3.8 g/dl (3.5-5.0); Albumin/Globulin Ratio 1.4 (1.1-1.8); Alkaline Phosphatase 57 U/L (38-126); Anion Gap 9.5 mEq/L (5-15); Aspartate Amino Transferase 32 U/L (17-59); Bilirubin,Total 1.1 mg/dl (0.2-1.3); Blood Urea Nitrogen 11 mg/dl (9-20); Calcium 8.7 mg/dl (8.4-10.2); Carbon Dioxide 23 mmol/L (22.0-30.0); Chloride 105 mmol/L (98-107); Creatinine Clearance Estimated 143 mL/min (50-200); Estimated Glomerular Filt Rate 77 ml/min (>60); GFR (African American) 93 ML/MIN (>60); Globulin 2.7 g/dL (1.3-3.2); Glucose 103 mg/dl (74-100); Magnesium 2.1 mg/dl (1.6-2.3); Potassium 4.5 mmoL/L (3.5-5.1); Sodium 133 mmol/L (136-145); Total Protein,Serum 6.5 g/dl (6.3-8.2)
[2024-07-30 08:00] VITALS: BP 142/78; PULSE 79; RESP 16; TEMP 36.6; O2SAT 92
[2024-07-30] MEDS: ENOXAPARIN 40MG/0.4ML SYRINGE 40 MG SUBCUT (10:51)
--- NOTE | 2024-07-30 14:19 | EXP.ACUTE.PN ---
Subjective *Date: 07/30/24 *Time: 14:19 Interval history: Patient ate dinner and breakfast. Had an acute episode overnight however with significant abdominal pain. Sharp in his lower abdomen and into his bladder. Doubled him over. Necessitated increased pain medications. Had a bowel movement this morning. No vomiting but had intermittent nausea especially with pain. Medical Exam Vital signs and Labs for Last 24 Hours: Vital Signs Temp Pulse Resp BP Pulse Ox O2 Del Method 07/30/24 11:00 Room Air 07/30/24 09:00 Room Air 07/30/24 08:00 Room Air 07/30/24 08:00 97.9 F 79 16 142/78 H 92 L Room Air 07/30/24 06:45 Room Air 07/30/24 05:00 Room Air 07/30/24 04:00 98.2 F 69 16 125/78 92 L Room Air 07/30/24 03:00 Room Air 07/30/24 01:00 Room Air 07/29/24 23:00 Room Air 07/29/24 21:00 Room Air 07/29/24 20:00 63 16 94 L Room Air 07/29/24 20:00 98.0 F 63 16 128/78 94 L Room Air 07/29/24 17:00 Room Air 07/29/24 16:00 64 19 118/85 96 Room Air 07/29/24 15:00 Room Air Intake and Output 07/29/24 07/30/24 07/30/24 23:59 07:59 15:59 Intake Total 600 / 2374 454 / 814 360 / 814 Output Total 0 / 0 0 / 0 0 / 0 Balance 600 / 2374 454 / 814 360 / 814 Intake: Intake, Oral Amount 600 / 2274 354 / 714 360 / 714 Infusion Intake 100 / 100 Piperacillin/Tazo 3.375 gm In 0 100 / 100 .9 % Sodium Chloride 50 ml @ 100 mls/hr IV Q6H [facility] Rx#: [id number] Output: Output, Urine Amount 0 / 0 0 / 0 0 / 0 Other: Number of Voids 0 Number of Unmeasured Voids 1 1 1 Number of Bowel Movements 1 Weight 124.012 kg Patient Weight 07/30/24 23:59 Weight 124.012 kg Laboratory Results - last 24 hr 07/30/24 06:10: WBC 13.0 H, RBC 5.40, Hgb 16.2, Hct 46.6, MCV 86.3, MCH 30.0, MCHC 34.8, RDW 13.3, Plt Count 174 D, MPV 10.0, Neut % (Auto) 74.8, Lymph % (Auto) 12.9, [place] % (Auto) 9.3, Eos % (Auto) 0.9, Baso % (Auto) 0.6, Neut # (Auto) 9.7 H, Lymph # (Auto) 1.7, [place] # (Auto) 1.2 H, Eos # (Auto) 0.1, Baso # (Auto) 0.1, Sodium 133 L, Potassium 4.5, Chloride 105, Carbon Dioxide 23, Anion Gap 9.5, BUN 11, Creatinine 1.00, Estimated Creat Clear 143, Estimated GFR 77, Est GFR ( Amer) 93, Glucose 103 H, Calcium 8.7, Magnesium 2.1 D, Total Bilirubin 1.1, AST 32 D, ALT 35, Alkaline Phosphatase 57, Total Protein 6.5, Albumin 3.8, Globulin 2.7, Albumin/Globulin Ratio 1.4 I & O for Labs for Last 24 Hours: Intake & Output 07/27/24 07/28/24 07/29/24 07/30/24 23:59 23:59 23:59 23:59 Intake Total 1919 / 4 814 / 814 Output Total 0 / 0 0 / 0 Balance 1919 / 2373 814 / 814 Weight 123.649 kg 123.468 kg 124.012 kg Constitutional: Present no acute distress, obese and cooperative Head: Present atraumatic and normocephalic ENT: Present normal exam Respiratory: Present normal respiratory effort; Absent rhonchi or wheezes Cardiac: Present Reg Rate and Rhythm GI: Present soft, tenderness (Lower abdomen, worse in left lower abdomen.) and normal bowel sounds; Absent distention Extremities: Present normal inspection and full ROM Skin: Present intact; Absent erythema Neuro: Present Grossly Intact, alert, awake, oriented x 3 and moves all extremities Assessment and Plan *Assessment and plan (1) Diverticulitis of sigmoid colon: Status: Acute Category: Medical Code(s): K57.32 - Diverticulitis of large intestine without perforation or abscess without bleeding (2) Atelectasis, right: Status: Acute Category: Medical Code(s): J98.11 - Atelectasis (3) Abdominal pain: Status: Acute Qualifiers: Abdominal location: lower abdomen, unspecified Qualified Code(s): R10.30 - Lower abdominal pain, unspecified Category: Medical Code(s): R10.9 - Unspecified abdominal pain (4) Obesity (BMI 30-39.9): Status: Acute Category: Medical Code(s): E66.9 - Obesity, unspecified Plan 59-year-old male who presented with moderate diverticulitis. Also meeting sepsis criteria with tachycardia and leukocytosis. Admitted to medicine for further management. Tolerating IV antibiotics. Seeing some improvement this morning. Tolerating clear liquids. GI consulted and assisting with care. Continues to require inpatient management. Due to acute pain overnight, will keep 1 more night on IV antibiotics. Anticipate discharge tomorrow. Problems addressed as follows: Sepsis Diverticulitis - Heart rate in the 90s, white count of 20,000, diverticulitis on CT imaging. Meeting sepsis criteria. Continue broad-spectrum antibiotics with Zosyn 4.5 g every 6 hours IV. -Tolerating low residue diet, had bowel movement. -Will continue IV antibiotics for 1 more day. Plan to transition to ciprofloxacin and Flagyl at discharge to complete 7 to 10 days of antibiotics. -White count still elevated at 13, hemoglobin 16. Kidney function normal with BUN 11, creatinine 1. Repeat CBC, CMP, magnesium ordered for the morning - Dilaudid 2 mg IV every 4 hours as needed for severe breakthrough pain, monitor for toxicity. Toradol 50 mg IV every 6 hours as needed for moderate to severe pain. -Zofran 4 mg IV every 8 hours for nausea Dysuria likely secondary to inflammation of bladder due to proximity to inflammation of the sigmoid colon. No concern for UTI at this time. Obesity complicates all aspects of his care. Full code Lovenox 40 mg subcu daily low residue diet
[2024-07-30 16:00] VITALS: BP 144/79; PULSE 69; RESP 18; TEMP 37.1; O2SAT 96
--- NOTE | 2024-07-30 18:09 | PC.NURSE ---
AOX4, AMBULATING INDEPENDENTLY IN ROOM AND HALLWAY AND TOLERATING WELL. HAS TOLERATED DIET SO FAR.
--- NOTE | 2024-07-30 18:30 | PC.NURSE ---
Student nurse, Kelsey Michel provided care under this nurses supervision.
[2024-07-30 19:51] VITALS: BP 157/81; PULSE 63; RESP 18; TEMP 37.1; O2SAT 95
[2024-07-30] MEDS: ACETAMINOPHEN 325MG TAB 650 MG PO (23:07)
[2024-07-31] MEDS: PIPERACILLIN/TAZO 3.375 GM in 0.9 % SODIUM CHLORIDE 50 ML IV ×2 (01:10→06:10)
[2024-07-31 04:00] VITALS: BMI 39.1
[2024-07-31 04:36] VITALS: BP 147/89; PULSE 58; RESP 18; TEMP 36.5; O2SAT 94
--- NOTE | 2024-07-31 05:56 | PC.NURSE ---
patient has rested well tonight - no acute changes and denies abd pain
[2024-07-31 08:00] VITALS: BP 127/74; PULSE 66; RESP 16; TEMP 36.4; O2SAT 93
[2024-07-31 08:07] LABS: Alanine Aminotransferase 27 U/L (12-78); Albumin Level 3.7 g/dl (3.5-5.0); Albumin/Globulin Ratio 1.4 (1.1-1.8); Alkaline Phosphatase 56 U/L (38-126); Anion Gap 6.3 mEq/L (5-15); Aspartate Amino Transferase 24 U/L (17-59); Bilirubin,Total 0.8 mg/dl (0.2-1.3); Blood Urea Nitrogen 12 mg/dl (9-20); Calcium 8.9 mg/dl (8.4-10.2); Carbon Dioxide 29 mmol/L (22.0-30.0); Chloride 106 mmol/L (98-107); Creatinine Clearance Estimated 130 mL/min (50-200); Estimated Glomerular Filt Rate 69 ml/min (>60); GFR (African American) 83 ML/MIN (>60); Globulin 2.6 g/dL (1.3-3.2); Glucose 92 mg/dl (74-100); Potassium 4.3 mmoL/L (3.5-5.1); Sodium 137 mmol/L (136-145); Total Protein,Serum 6.3 g/dl (6.3-8.2)
--- NOTE | 2024-07-31 08:10 | EXP.DC.SUM ---
General Admission date:: 07/28/24 Discharge date: 07/31/24 HPI HPI HPI: This 59-year-old man has been having increased abdominal discomfort that has become quite severe in the past 24 hours.. Patient noted increased abdominal pain and migraine last night. Patient did vomit 1 time. m abdominal history includes cholecystectomy. 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 Patient has done well since then. But presently the pain is now increased very severe showing guarding question peritonitis with an increased WBCs to 21,000. Past medical and history includes SVT approximately 2 years ago has not recurred.. Remarkable for in May seeing primary care 3 times for cough and bronchitis. Patient notes that he was on 2 different antibiotics for an extended period of time and just recently finished them last Friday. Patient noted that his stools are usually soft sometimes diarrhea since he had the problems as a child. He says he did notice that he had a very loose stool then a very solid 1 and then another one that was loose. Question relevancy as normal versus the fact he had been on several weeks of antibiotics. Will do stool specimen to rule out any C. difficile.. Have spoken with the ER provider. First dose of Zosyn has been given. For pain control Dilaudid and Toradol were given which helped some. But noting during the exam even light touching to the lower abdomen causes significant pain. Plan at this time to continue antibiotics, have patient seen by gastroenterology. Treat with medication for comfort and to decrease any gastric acid. Also stool specimen ordered to rule out any other infection/C. difficile Hospital Course Hospital Course Hospital Course: 59-year-old male who presented with moderate diverticulitis. Also meeting sepsis criteria with tachycardia and leukocytosis. Admitted to medicine for further management. Tolerating IV antibiotics. Seeing some improvement this morning. Tolerating clear liquids. GI consulted and assisting with care. Monitored on IV antibiotics for 48 hours. Able to tolerate advancement in diet. White count improved. Given tolerance of p.o. intake, having bowel movements, improvement in pain, afebrile for 48 hours. Stable discharge home with oral antibiotics to complete course. Problems addressed as follows: Sepsis, resolved Diverticulitis -Presented with heart rate in the 90s, white count of 20,000, diverticulitis on CT imaging. Meeting sepsis criteria. Initiated on Zosyn 4.5 g every 6 hours IV. Tolerated well. White count trended down. Was transition to ciprofloxacin and Flagyl at discharge to complete 10 days total of antibiotic therapy. Pain showing improvement. Given his improvement in pain, improvement in white count, afebrile status, normalization of vitals, intolerance of p.o. intake, patient deemed stable discharge home. Having bowel movements. Follow-up with GI as an outpatient. No indication for any invasive interventions at this time. Further management as an outpatient. No peritoneal signs on day of discharge. Dysuria likely secondary to inflammation of bladder due to proximity to inflammation of the sigmoid colon. No concern for UTI at this time. Stable discharge home. Exam Data for Last 24 hours Vital signs and Labs for Last 24 Hours: Temp Pulse Resp BP Pulse Ox O2 Del Method 98.5 F 62 17 128/78 98 Room Air 07/29/24 08:00 07/29/24 08:00 07/29/24 08:00 07/29/24 08:00 07/29/24 08:00 07/29/24 13:00 Laboratory Results - last 24 hr 07/28/24 18:53: SARS-CoV-2 (PCR) Not detected, Influenza A Untype (PCR) Not detected, Influenza Type B (PCR) Not detected 07/28/24 19:21: Urine Color Yellow, Urine Appearance Clear, Urine pH 6.5, Ur Specific [place] 1.015, Urine Protein Negative, Urine Glucose (UA) Negative, Urine Ketones Negative, Urine Blood Negative, Urine Nitrate Negative, Urine Bilirubin Negative, Urine Urobilinogen 0.2, Ur Leukocyte Esterase Negative, Urine RBC Occasional, Urine WBC Occasional, Ur Squamous Epith Cells Occasional, Urine Bacteria 1+, Urine Mucus 1+ 07/28/24 19:35: WBC 20.6 H*, RBC 5.80, Hgb 17.3, Hct 50.0, MCV 86.2, MCH 29.8, MCHC 34.6, RDW 13.6, Plt Count 212, MPV 10.2, Neut % (Auto) 77.7, Lymph % (Auto) 10.7, [place] % (Auto) 9.7 H, Eos % (Auto) 0.2, Baso % (Auto) 0.5, Neut # (Auto) 16.0 H, Lymph # (Auto) 2.2, [place] # (Auto) 2.0 H, Eos # (Auto) 0.1, Baso # (Auto) 0.1, Total Counted 100, Neutrophils % (Manual) 80 H, Lymphocytes % (Manual) 7 L, Monocytes % (Manual) 12 H, Eosinophils % (Manual) 1, Platelet Estimate Normal, RBC Morphology Normal, Sodium 132 L, Potassium 3.9, Chloride 101, Carbon Dioxide 24, Anion Gap 10.9, BUN 17, Creatinine 1.00, Estimated Creat Clear 136, Estimated GFR 77, Est GFR ( Amer) 93, Glucose 139 H, Lactate 0.9, Calcium 10.0, Total Bilirubin 0.8, AST 37, ALT 44, Alkaline Phosphatase 77, Total Protein 7.1, Albumin 4.3, Globulin 2.8, Albumin/Globulin Ratio 1.5, Lipase 159 07/29/24 07:15: WBC 13.3 H D, RBC 5.25, Hgb 15.9, Hct 46.5, MCV 88.6, MCH 30.3, MCHC 34.2, RDW 13.7, Plt Count 128 L D, MPV 11.1 H, Neut % (Auto) 71.2, Lymph % (Auto) 13.1, [place] % (Auto) 12.2 H, Eos % (Auto) 1.4, Baso % (Auto) 0.8, Neut # (Auto) 9.5 H, Lymph # (Auto) 1.7, [place] # (Auto) 1.6 H, Eos # (Auto) 0.2, Baso # (Auto) 0.1, Sodium 132 L, Potassium 3.9, Chloride 106, Carbon Dioxide 23, Anion Gap 6.9, BUN 13, Creatinine 0.90, Estimated Creat Clear 158, Estimated GFR 87, Est GFR ( Amer) 105, Glucose 104 H D, Lactate 0.9, Calcium 9.1, Magnesium 1.8, Total Bilirubin 1.7 H, AST 52 D, ALT 34, Alkaline Phosphatase 58, C-Reactive Protein 94.5 H, Total Protein 6.0 L, Albumin 3.5 D, Globulin 2.5, Albumin/Globulin Ratio 1.4 I & O for Last 24 hours: Intake & Output 07/26/24 07/27/24 07/28/24 07/29/24 23:59 23:59 23:59 23:59 Intake Total 780 / 780 Output Total 0 / 0 Balance 780 / 780 Weight 123.649 kg 123.468 kg Constitutional Constitutional: no acute distress, obese and cooperative *Routine HEENT Exam Head: Present normocephalic Eye: Present EOMI and PERRL ENT: Present mucous membranes moist *Routine Neck Exam Neck: Present supple; Absent lymphadenopathy *Routine Respiratory Exam Respiratory: Present CTA bilaterally; Absent rhonchi, wheezes or crackles *Routine Cardiovascular Exam Cardiovascular: Present RRR *Routine Abdominal Exam Abdominal: Present soft, normoactive bowel sounds and tenderness (suprapubic, improving) *Routine Rectal Exam Patient deferred: visual exam *Routine Exam Patient deferred: penile exam *Routine Extremities Exam Extremities: Absent cyanosis, clubbing or edema *Routine Skin Exam Skin: Present warm; Absent rash *Routine Neurological Exam Neurological: Present alert, oriented X3 and moving all extremities; Absent altered mental status Results Data Completed and Pending Labs on day of discharge: Labs from last 24 hours 07/29/24 07/28/24 07/28/24 07:15 19:35 19:21 WBC 13.3 H D 20.6 H* RBC 5.25 5.80 Hgb 15.9 17.3 Hct 46.5 50.0 MCV 88.6 86.2 MCH 30.3 29.8 MCHC 34.2 34.6 RDW 13.7 13.6 Plt Count 128 L D 212 MPV 11.1 H 10.2 Neut % (Auto) 71.2 77.7 Lymph % (Auto) 13.1 10.7 [place] % (Auto) 12.2 H 9.7 H Eos % (Auto) 1.4 0.2 Baso % (Auto) 0.8 0.5 Neut # (Auto) 9.5 H 16.0 H Lymph # (Auto) 1.7 2.2 [place] # (Auto) 1.6 H 2.0 H Eos # (Auto) 0.2 0.1 Baso # (Auto) 0.1 0.1 Total Counted 100 Neutrophils % (Manual) 80 H Lymphocytes % (Manual) 7 L Monocytes % (Manual) 12 H Eosinophils % (Manual) 1 Platelet Estimate Normal RBC Morphology Normal Sodium 132 L 132 L Potassium 3.9 3.9 Chloride 106 101 Carbon Dioxide 23 24 Anion Gap 6.9 10.9 BUN 13 17 Creatinine 0.90 1.00 Estimated Creat Clear 158 136 Estimated GFR 87 77 Est GFR ( Amer) 105 93 Glucose 104 H D 139 H Lactate 0.9 0.9 Calcium 9.1 10.0 Magnesium 1.8 Total Bilirubin 1.7 H 0.8 AST 52 D 37 ALT 34 44 Alkaline Phosphatase 58 77 C-Reactive Protein 94.5 H Total Protein 6.0 L 7.1 Albumin 3.5 D 4.3 Globulin 2.5 2.8 Albumin/Globulin Ratio 1.4 1.5 Lipase 159 Urine Color Yellow Urine Appearance Clear Urine pH 6.5 Ur Specific [place] 1.015 Urine Protein Negative Urine Glucose (UA) Negative Urine Ketones Negative Urine Blood Negative Urine Nitrate Negative Urine Bilirubin Negative Urine Urobilinogen 0.2 Ur Leukocyte Esterase Negative Urine RBC Occasional Urine WBC Occasional Ur Squamous Epith Cells Occasional Urine Bacteria 1+ Urine Mucus 1+ SARS-CoV-2 (PCR) Influenza A Untype (PCR) Influenza Type B (PCR) 07/28/24 18:53 WBC RBC Hgb Hct MCV MCH MCHC RDW Plt Count MPV Neut % (Auto) Lymph % (Auto) [place] % (Auto) Eos % (Auto) Baso % (Auto) Neut # (Auto) Lymph # (Auto) [place] # (Auto) Eos # (Auto) Baso # (Auto) Total Counted Neutrophils % (Manual) Lymphocytes % (Manual) Monocytes % (Manual) Eosinophils % (Manual) Platelet Estimate RBC Morphology Sodium Potassium Chloride Carbon Dioxide Anion Gap BUN Creatinine Estimated Creat Clear Estimated GFR Est GFR ( Amer) Glucose Lactate Calcium Magnesium Total Bilirubin AST ALT Alkaline Phosphatase C-Reactive Protein Total Protein Albumin Globulin Albumin/Globulin Ratio Lipase Urine Color Urine Appearance Urine pH Ur Specific [place] Urine Protein Urine Glucose (UA) Urine Ketones Urine Blood Urine Nitrate Urine Bilirubin Urine Urobilinogen Ur Leukocyte Esterase Urine RBC Urine WBC Ur Squamous Epith Cells Urine Bacteria Urine Mucus SARS-CoV-2 (PCR) Not detected Influenza A Untype (PCR) Not detected Influenza Type B (PCR) Not detected DS: Diagnosis Discharge Diagnosis (1) Diverticulitis of sigmoid colon: Status: Acute Code(s): K57.32 - Diverticulitis of large intestine without perforation or abscess without bleeding (2) Atelectasis, right: Status: Acute Code(s): J98.11 - Atelectasis (3) Abdominal pain: Status: Acute Code(s): R10.9 - Unspecified abdominal pain Qualifiers: Abdominal location: lower abdomen, unspecified Qualified Code(s): R10.30 - Lower abdominal pain, unspecified Meds Home Medications and Allergies Home Medications ?Medication ?Instructions ?Recorded ?Confirmed ?Type albuterol sulfate 90 mcg/actuation 2 puff inhalation Q4-6H PRN 06/05/24 07/29/24 Rx aerosol inhaler shortness of breath or wheezing #8.5 grams ciprofloxacin HCl 500 mg tablet 500 mg PO BID 6 days #12 tabs 07/29/24 Rx metronidazole 500 mg tablet 500 mg PO Q8H 6 days #18 tabs 07/29/24 Rx New Prescriptions to Start Prescriptions: ciprofloxacin HCl Branden Arreguin metronidazole Branden Arreguin Allergies Allergy/AdvReac Type Severity Reaction Status Date / Time tree and shrub pollen Allergy Mild Congested Verified 07/12/24 09:28 Discharge Plan Disposition Patient Disposition: Home, Self-Care Condition: Fair Follow up Plan Follow up with: Koko Lazcano II, MD [Staff Physician] - 09/07/24 9:30 am Erinn Del Cid APRN [Primary Care Provider] - 08/05/24 1:00 pm Prescriptions/Medication Reconciliation: New ciprofloxacin HCl 500 mg tablet 500 mg PO BID 6 Days Qty: 12 0RF metronidazole 500 mg tablet 500 mg PO Q8H 6 Days Qty: 18 0RF Continued albuterol sulfate 90 mcg/actuation HFA aerosol inhaler 2 puff inhalation Q4-6H PRN (Reason: shortness of breath or wheezing) Qty: 8.5 0RF Problem Reconciliation Problems Reviewed?: Yes Patient Discharge Instructions ACTIVITY: Continue current activity DIET: continue same diet Patient Instructions: DI for Diverticulitis, DI for Abdominal Pain-Adult Print Language: Croatian Providers Primary Care Provider: Erinn Del Cid Admit Provider: Branden Arreguin Attending Provider: Branden Arreguin
[2024-07-31] MEDS: ENOXAPARIN 40MG/0.4ML SYRINGE 40 MG SUBCUT (08:30)
--- NOTE | 2024-08-03 10:55 | SW/DCPLANNER ---
Addendum entered by Hanna Glasgow 08/03/24 11:01: Patient called me back. Patient stated that the 2 antibiotics that he is on is making him nauseous. Patient stated that he is aware of his upcoming appointments. Patient stated that [facility] can [facility] for him to have a colon[facility] done. Patient stated that he has no concerns or questions at this time. Shaggy Long Original Note: Phoned patient x 2. Left messages with call back number and a name. Shaggy Long
== END 2024-07-31 10:54 | disposition home or self-care (01) ==
LOC: ER 22:25 → 2ND 22:45
PROVIDERS: Nurse Practitioner Family; Admitting Provider Internal Medicine Adolescent Medicine; Emergency Provider Emergency Medicine; PCP Nurse Practitioner Family; Visit Provider Internal Medicine Adolescent Medicine
DX: K57.32 Diverticulitis of large intestine without perforation or abscess without bleeding (principal); E66.9 Obesity, unspecified; Z68.39 Body mass index [BMI] 39.0-39.9, adult; Z79.51 Long term (current) use of inhaled steroids; J98.11 Atelectasis; Z85.038 Personal history of other malignant neoplasm of large intestine; Z91.048 Other nonmedicinal substance allergy status; Z90.49 Acquired absence of other specified parts of digestive tract; R30.0 Dysuria
CPT/HCPCS: 36415; 74021; 74177; 80053; 81001; 83605; 83690; 83735; 85007; 85025; 85027; 86140; 87045; 87636; 99285; G0378; J1171; J1650; J1885; J2405; J2543; J3475; J7030; J7120; Q9967